=== PATIENT | female | born 1980 | race Caucasian/White ===

== ENCOUNTER 2020-04-14 14:14 | Outpatient (REF) | payer OTHER, SELFPAY ==
[2020-04-18 20:12] LABS: HPV mRNA E6/E7 rflx Not Detected (Not Detected)
== END 2020-04-14 14:15 | disposition home or self-care (01) ==
LOC: HO.LAB 14:14
PROVIDERS: PCP Internal Medicine; Visit Provider Obstetrics & Gynecology
DX: Z01.419 Encounter for gynecological examination (general) (routine) without abnormal findings (principal); D06.9 Carcinoma in situ of cervix, unspecified; N90.89 Other specified noninflammatory disorders of vulva and perineum; Z79.899 Other long term (current) drug therapy
CPT/HCPCS: 87624; 87625; 88142

== ENCOUNTER 2020-05-02 09:32 | Outpatient (REF) | payer OTHER, SELFPAY ==
[2020-05-02 10:08] LABS: MANUAL DIFF FLAG NO
[2020-05-02 10:10] LABS: Basophils Percent Auto 0.3 % (0-2); Eosinophils Absolute Auto 0.1 X10*3/uL (0.0-0.4); Eosinophils Percent Auto 1.5 % (0-4); Hematocrit 36.2 % (37-47); Hemoglobin 12.1 g/dl (12.0-16.0); Imm Gran Abs Auto 0.01 X10*3/uL (0.00-0.03); Imm Gran Pct Auto 0.3 % (0.0-0.4); Lymphocytes Absolute Auto 1.7 X10*3/uL (1.2-4.9); Lymphocytes Percent Auto 43.8 % (20-40); Mean Corpuscular HGB Conc 33.4 g/dl (31.0-35.0); Mean Corpuscular Hemoglobin 31.4 pg (27.0-33.0); Mean Platelet Volume 9.1 fL (9.4-12.3); Monocytes Absolute Auto 0.3 X10*3/uL (0.1-1.2); Monocytes Percent Auto 7.7 % (2-11); Neutrophils Absolute Auto 1.8 X10*3/uL (2.0-8.3); Neutrophils Percent Auto 46.4 % (45-73); Platelet Count 234 X10*3/uL (160-400); Red Blood Count 3.85 X10*6/uL (4.20-5.50); Red Cell Distribution Width 11.4 % (11.0-16.0); White Blood Count 3.9 X10*3/uL (4.8-10.8)
[2020-05-02 10:56] LABS: Alanine Aminotransferase 12 U/L (0-31); Albumin Level 4.3 g/dL (3.5-5.0); Alkaline Phosphatase 46 U/L (39-117); Anion Gap 11 (12-20); Aspartate Amino Transferase 19 U/L (5-31); Bilirubin Total 0.6 mg/dL (0.0-1.0); Blood Urea Nitrogen 8 mg/dL (9-16); Calcium 8.7 mg/dL (8.4-10.2); Carbon Dioxide 28 mmol/L (22-29); Chloride 106 mmol/L (96-108); Cholesterol 185 mg/dL; Estimated Glomerular Filt Rate > 60; Glucose Fasting 88 mg/dL (60-99); HDL Cholesterol 62 mg/dL; LDL Cholesterol Calculated 112 mg/dl; Potassium 4.5 mmol/l (3.3-5.1); Sodium 140 mmol/L (135-145); Total Protein 6.7 g/dL (6.5-8.0); Triglycerides 55 mg/dL
== END 2020-05-02 09:33 | disposition home or self-care (01) ==
LOC: HO.LAB 09:32
PROVIDERS: PCP Internal Medicine; Visit Provider Internal Medicine
DX: Z00.00 Encounter for general adult medical examination without abnormal findings (principal); E11.9 Type 2 diabetes mellitus without complications
CPT/HCPCS: 36415; 80053; 80061; 85025

== ENCOUNTER 2020-06-09 08:32 | Outpatient (REF) | payer OTHER, SELFPAY | END 2020-06-09 08:33 | disposition home or self-care (01) | LOC: HO.LAB 08:32 | PROVIDERS: Visit Provider Obstetrics & Gynecology | DX: N90.89 Other specified noninflammatory disorders of vulva and perineum (principal) | CPT/HCPCS: 56605; 88305 ==

== ENCOUNTER → 2020-06-23 12:06 | Outpatient (BNVA) | payer OTHER, SELFPAY | PROVIDERS: Visit Provider Obstetrics & Gynecology ==

== ENCOUNTER 2020-07-04 11:47 | Outpatient (REF) | payer OTHER, SELFPAY ==
--- NOTE | ~2020-07-04 | MM_ITS ---
EXAMINATION: MM SCREENING DIGITAL BREAST TOMOSYNTHESIS, BILATERAL CLINICAL INFORMATION: Screening. Asymptomatic. Prior outside mammography currently unavailable. Family history breast cancer aunt. The lifetime risk of breast cancer based on the Tyrer-Cuzick Model is 16%. COMPARISON: None. TECHNIQUE: Digital breast tomosynthesis is performed in both the craniocaudal and mediolateral oblique views along with computer-aided detection (CAD). Synthesized 2D images are generated from the tomosynthesis. FINDINGS: There are scattered areas of fibroglandular density (ACR BI-RADS breast composition Category b). There are no significant masses, abnormal calcifications, or other abnormalities. There are some dermal calcifications posterior inferior medial left breast. The axilla and skin contours are unremarkable. MM/MM tomosynthesis screening BI IMPRESSION: No mammographic evidence of malignancy. ASSESSMENT: BI-RADS 2: Benign RECOMMENDATION: 1. Routine annual mammography screening. 2. Radiology department staff will attempt to retrieve prior outside mammography to allow for comparison in an addendum report. This patient's information was entered into a reminder system with a target due date for their next mammogram.
== END 2020-07-04 11:48 | disposition home or self-care (01) ==
LOC: HO.MAMMO 11:47
PROVIDERS: PCP Internal Medicine; Visit Provider Obstetrics & Gynecology
DX: Z12.31 Encounter for screening mammogram for malignant neoplasm of breast (principal)
CPT/HCPCS: 77063; 77067

== ENCOUNTER 2021-06-12 09:52 | Outpatient (REF) | payer OTHER, SELFPAY ==
[2021-06-12 10:59] LABS: MANUAL DIFF FLAG NO
[2021-06-12 11:01] LABS: Basophils Percent Auto 0.2 % (0-2); Eosinophils Percent Auto 0.4 % (0-4); Hematocrit 36.4 % (37.0-47.0); Hemoglobin 11.8 g/dl (12.0-16.0); Imm Gran Abs Auto 0.01 X10*3/uL (0.00-0.03); Imm Gran Pct Auto 0.2 % (0.0-0.4); Lymphocytes Absolute Auto 1.7 X10*3/uL (1.2-4.9); Lymphocytes Percent Auto 30.8 % (20-40); Mean Corpuscular HGB Conc 32.4 g/dl (31.0-35.0); Mean Corpuscular Hemoglobin 28.8 pg (27.0-33.0); Mean Corpuscular Volume 88.8 fL (80.0-98.0); Mean Platelet Volume 8.8 fL (9.4-12.3); Monocytes Absolute Auto 0.4 X10*3/uL (0.1-1.2); Neutrophils Absolute Auto 3.2 x10*3/uL (2.0-8.3); Neutrophils Percent Auto 60.4 % (45-73); Platelet Count 248 X10*3/uL (160-400); White Blood Count 5.4 X10*3/uL (4.8-10.8)
[2021-06-12 11:39] LABS: Alanine Aminotransferase 10 U/L (0-31); Albumin Level 4.4 g/dL (3.5-5.0); Alkaline Phosphatase 49 U/L (39-117); Anion Gap 13 (12-20); Aspartate Amino Transferase 17 U/L (5-31); Bilirubin Total 0.7 mg/dL (0.0-1.0); Blood Urea Nitrogen 6 mg/dL (9-16); Calcium 9.7 mg/dL (8.4-10.2); Carbon Dioxide 28 mmol/L (22-29); Chloride 105 mmol/L (96-108); Cholesterol 216 mg/dL; Estimated Glomerular Filt Rate > 60; Glucose Fasting 92 mg/dL (60-99); HDL Cholesterol 60 mg/dL; LDL Cholesterol Calculated 142 mg/dl; Potassium 4.8 mmol/L (3.3-5.1); Sodium 141 mmol/L (135-145); Total Protein 7.2 g/dL (6.5-8.0); Triglycerides 73 mg/dL
[2021-06-12 12:00] LABS: Thyroid Stimulating Hormone 1.68 uIU/mL (0.32-4.0)
[2021-06-14 05:11] LABS: HPV mRNA E6/E7 rflx Not Detected (Not Detected)
== END 2021-06-12 09:53 | disposition home or self-care (01) ==
LOC: HO.LAB 09:52
PROVIDERS: Absent Provider Internal Medicine; PCP Internal Medicine; Visit Provider Obstetrics & Gynecology
DX: Z00.00 Encounter for general adult medical examination without abnormal findings (principal); Z12.4 Encounter for screening for malignant neoplasm of cervix; Z11.51 Encounter for screening for human papillomavirus (HPV); Z13.0 Encounter for screening for diseases of the blood and blood-forming organs and certain disorders involving the immune mechanism
CPT/HCPCS: 36415; 80053; 80061; 84443; 85025; 87624; 88142

== ENCOUNTER 2021-07-07 07:45 | Outpatient (REF) | payer OTHER, SELFPAY ==
--- NOTE | ~2021-07-07 | MM_ITS ---
EXAMINATION: MM SCREENING DIGITAL BREAST TOMOSYNTHESIS, BILATERAL CLINICAL INFORMATION: Screening. Asymptomatic. The lifetime risk of breast cancer based on the Tyrer-Cuzick Model is 15%. COMPARISON: Mammography: 07/04/2020, outside exam 12/20/2014 ([facility]). TECHNIQUE: Digital breast tomosynthesis is performed in both the craniocaudal and mediolateral oblique views along with computer-aided detection (CAD). Synthesized 2D images are generated from the tomosynthesis. FINDINGS: There are scattered areas of fibroglandular density (ACR BI-RADS breast composition Category b). There are no significant masses, abnormal calcifications, or other abnormalities. Parenchymal pattern is similar to prior studies. No developing density or significant changes. MM/MM tomosynthesis screening BI IMPRESSION: No mammographic evidence of malignancy. ASSESSMENT: BI-RADS 1: Negative RECOMMENDATION: Routine annual mammography screening. This patient's information was entered into a reminder system with a target due date for their next mammogram.
== END 2021-07-07 07:46 | disposition home or self-care (01) ==
LOC: HO.MAMMO 07:45
PROVIDERS: Absent Provider Obstetrics & Gynecology; PCP Internal Medicine; Visit Provider Internal Medicine
DX: Z12.31 Encounter for screening mammogram for malignant neoplasm of breast (principal)
CPT/HCPCS: 77063; 77067

== ENCOUNTER 2022-05-30 10:20 | Outpatient (REF) | payer OTHER, SELFPAY ==
--- NOTE | ~2022-05-30 | US_ITS ---
EXAMINATION: US PELVIS CLINICAL INFORMATION: Check IUD placement. COMPARISON: None TECHNIQUE: Ultrasound of the pelvis is performed using both transabdominal and transvaginal transducers along with Doppler. Transvaginal imaging is performed due to inadequate visualization transabdominally. FINDINGS: Uterus: The uterus is anteverted and measures 8.5 x 4.5 x 6.2 cm. The double wall endometrial thickness could not be measured secondary to the IUD which is in good position. The uterus is smooth in contour and has normal myometrial echogenicity. No visible fibroid. Adnexa: Both ovaries are visualized. There is normal color flow to the adnexa. There is no ovarian torsion. There is no pelvic ascites or fluid collection. Right ovary measures 1.7 x 2.0 x 2.1 cm for a volume of 3.7 mL which includes a benign 1.4 x 0.8 x 1.1 cm cyst. Left ovary measures 2.9 x 1.9 x 1.8 cm for volume of 5.2 mL includes a 1.7 x 1.4 x 1.3 cm cyst. US/US pelvic complete IMPRESSION: 1. IUD is in good position. 2. Bilateral ovarian cysts. No follow-up is needed.
[2022-05-30 15:10] LABS: CT PCR NOT DETECTED (Not Detect.); NG PCR NOT DETECTED (Not Detect.)
== END 2022-05-30 10:21 | disposition home or self-care (01) ==
LOC: HO.LAB 10:20
PROVIDERS: PCP Internal Medicine; Visit Provider Obstetrics & Gynecology
DX: Z30.430 Encounter for insertion of intrauterine contraceptive device (principal)
CPT/HCPCS: 0353U; 58300; 76856; 81025; J7300

== ENCOUNTER 2022-05-30 11:10 | Outpatient (REF) | payer OTHER, SELFPAY | END 2022-05-30 11:11 | disposition home or self-care (01) | LOC: HO.US 11:10 | PROVIDERS: PCP Internal Medicine; Visit Provider Obstetrics & Gynecology | DX: Z13.89 Encounter for screening for other disorder (principal) ==

== ENCOUNTER 2022-06-14 09:08 | Outpatient (REF) | payer OTHER, SELFPAY ==
[2022-06-14 09:21] LABS: MANUAL DIFF FLAG NO
[2022-06-14 09:41] LABS: Basophils Percent Auto 0.3 % (0-2); Eosinophils Percent Auto 0.5 % (0-4); Hematocrit 33.7 % (37.0-47.0); Hemoglobin 10.5 g/dl (12.0-16.0); Imm Gran Abs Auto 0.01 X10*3/uL (0.00-0.03); Imm Gran Pct Auto 0.3 % (0.0-0.4); Lymphocytes Absolute Auto 1.5 X10*3/uL (1.2-4.9); Lymphocytes Percent Auto 38.7 % (20-40); Mean Corpuscular HGB Conc 31.2 g/dl (31.0-35.0); Mean Corpuscular Hemoglobin 25.7 pg (27.0-33.0); Mean Corpuscular Volume 82.4 fL (80.0-98.0); Mean Platelet Volume 9.1 fL (9.4-12.3); Monocytes Absolute Auto 0.4 X10*3/uL (0.1-1.2); Monocytes Percent Auto 10.9 % (2-11); Neutrophils Absolute Auto 1.9 x10*3/uL (2.0-8.3); Neutrophils Percent Auto 49.3 % (45-73); Platelet Count 238 X10*3/uL (160-400); Red Blood Count 4.09 X10*6/uL (4.20-5.50); Red Cell Distribution Width 13.4 % (11.0-16.0); White Blood Count 3.9 X10*3/uL (4.8-10.8)
[2022-06-14 10:17] LABS: Alanine Aminotransferase 11 U/L (0-31); Albumin Level 4.2 g/dL (3.5-5.0); Alkaline Phosphatase 50 U/L (39-117); Anion Gap 12 (12-20); Aspartate Amino Transferase 20 U/L (5-31); Bilirubin Total 0.6 mg/dL (0.0-1.0); Blood Urea Nitrogen 7 mg/dL (9-16); Carbon Dioxide 26 mmol/L (22-29); Chloride 103 mmol/L (96-108); Cholesterol 228 mg/dL; Estimated Glomerular Filt Rate > 60; Glucose Fasting 85 mg/dL (60-99); HDL Cholesterol 72 mg/dL; LDL Cholesterol Calculated 140 mg/dl; Sodium 136 mmol/L (135-145); Total Protein 6.9 g/dL (6.5-8.0); Triglycerides 80 mg/dL
[2022-06-14 10:34] LABS: Thyroid Stimulating Hormone 2.14 uIU/mL (0.32-4.0)
== END 2022-06-14 09:09 | disposition home or self-care (01) ==
LOC: HO.LAB 09:08
PROVIDERS: PCP Internal Medicine; Visit Provider Internal Medicine
DX: E78.5 Hyperlipidemia, unspecified (principal); D64.9 Anemia, unspecified; N28.9 Disorder of kidney and ureter, unspecified; E03.9 Hypothyroidism, unspecified
CPT/HCPCS: 36415; 80053; 80061; 84443; 85025

== ENCOUNTER 2022-06-14 09:53 | Outpatient (REF) | payer OTHER, SELFPAY ==
[2022-06-16 03:18] LABS: HPV mRNA E6/E7 rflx Not Detected (Not Detected)
== END 2022-06-14 09:54 | disposition home or self-care (01) ==
LOC: HO.LNP 09:53
PROVIDERS: Visit Provider Obstetrics & Gynecology
DX: Z01.419 Encounter for gynecological examination (general) (routine) without abnormal findings (principal); Z11.51 Encounter for screening for human papillomavirus (HPV)
CPT/HCPCS: 87624; 88142

== ENCOUNTER 2022-07-13 07:59 | Outpatient (REF) | payer OTHER, SELFPAY ==
--- NOTE | ~2022-07-13 | MM_ITS ---
EXAMINATION: MM SCREENING DIGITAL BREAST TOMOSYNTHESIS, BILATERAL CLINICAL INFORMATION: Screening. Asymptomatic. The lifetime risk of breast cancer based on the Tyrer-Cuzick Model is 15%. COMPARISON: Mammography: 07/07/2021, 07/04/2020, outside mammography 12/13/1714 ([place]). TECHNIQUE: Digital breast tomosynthesis is performed in both the craniocaudal and mediolateral oblique views along with computer-aided detection (CAD). Synthesized 2D images are generated from the tomosynthesis. FINDINGS: There are scattered areas of fibroglandular density (ACR BI-RADS breast composition Category b). There are no significant masses, abnormal calcifications, or other abnormalities. No architectural abnormality or developing density or significant change from prior studies. The axilla and skin contours are unremarkable. MM/MM tomosynthesis screening BI IMPRESSION: No mammographic evidence of malignancy. ASSESSMENT: BI-RADS 1: Negative RECOMMENDATION: Routine annual mammography screening. This patient's information was entered into a reminder system with a target due date for their next mammogram.
== END 2022-07-13 08:00 | disposition home or self-care (01) ==
LOC: HO.MAMMO 07:59
PROVIDERS: Absent Provider Obstetrics & Gynecology; PCP Internal Medicine; Visit Provider Internal Medicine
DX: Z12.31 Encounter for screening mammogram for malignant neoplasm of breast (principal)
CPT/HCPCS: 77063; 77067

== ENCOUNTER 2022-08-17 14:08 | Outpatient (REF) | payer OTHER, SELFPAY ==
[2022-08-17 18:29] LABS: Erythrocyte Sedimentation Rate 7 MM/HR (0-20)
[2022-08-17 18:34] LABS: Rheumatoid Factor < 13.0 IU/mL (<15.0)
[2022-08-21 07:43] LABS: Anti Nuclear Antibody Screen NEGATIVE (NEGATIVE)
== END 2022-08-17 14:09 | disposition home or self-care (01) ==
LOC: HO.LAB 14:08
PROVIDERS: PCP Internal Medicine; Visit Provider Internal Medicine
DX: I73.00 Raynaud's syndrome without gangrene (principal)
CPT/HCPCS: 36415; 85652; 86038; 86039; 86431

== ENCOUNTER 2023-03-12 12:26 | Outpatient (AMB) | payer OTHER, SELFPAY ==
--- NOTE | 2023-03-12 13:24 | MHC.OFFWIV ---
Intake Vital Signs 03/12/23 13:25 Height 5 ft 3 in Weight 161 lb 4 oz BMI 28.6 BP 120/80 Blood Pressure Location Lt brachial Position Sitting Pulse 83 Pulse Source Pulse Oximeter Temp 98.2 F Temp Source Temporal Artery Scan Pulse Oximetry (%) 98 Oxygen Delivery Method Room Air Intake Visit Reasons: EP, cough, congestion [phone] Intake Note: pt is here for c/o cough and congestion Patient Tobacco Use Status: Never used Tobacco Allergies No Known Allergies Allergy (Verified 03/12/23 13:25) Do you need a note to return to daycare/school/sports/work: Yes HPI HPI Comments History of Present Illness Details 42-year-old female that presents for URI symptoms. Patient started developing cough and upper respiratory symptoms around January. Since then cough is progress course the last month. She endorses some productivity to the cough denies fevers chills chest pain shortness of breath nausea vomiting. 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 Mother Hypothyroidism Maternal Grandmother No problems noted. Maternal Grandfather Prostate cancer Diabetes Paternal Grandmother Colon cancer CHF (congestive heart failure) CVD (cardiovascular disease) Paternal Grandfather Parkinsons disease Mental health disorder Paternal Aunt Breast cancer Social History Housing: House Alcohol intake: never Patient Tobacco Use Status: Never used Tobacco Tobacco use type: Cigarette e-Cigarette/Vaping Use: Never Used Second Hand Smoke Exposure: No service: No Current occupational status: employed Sexual orientation: Straight/Heterosexual Gender identity: Female Cognitive needs: No Hearing needs: No Vision needs: No Female Reproductive History Menstrual Age of Menarche: 10 Review of Systems Resp Reports chest congestion and Reports cough Physical Exam Vital Signs: Last Vital Signs Temp 98.2 F 03/12/23 13:25 Pulse 83 03/12/23 13:25 BP 120/80 03/12/23 13:25 Pulse Ox 98 03/12/23 13:25 Oxygen Delivery Method Room Air 03/12/23 13:25 BMI result Body Mass Index 28.6 Const General: healthy appearing, comfortable, no acute distress and alert Orientation/consciousness: patient oriented x3 Limitations: no limitations HEENT Head: Yes normal to inspection Ears: hearing grossly normal bilaterally Resp Other: ? Rhonchi left lower Effort & Inspection: normal respiratory effort and able to speak in complete sentences Cardio Rate: regular rate Skin General skin exam: no rashes or lesions noted Neuro General: patient oriented x3 Extrem General: Yes normal to inspection Assessment & Plan Assessment & Plan (1) Bronchitis: Code(s): J40 - Bronchitis, not specified as acute or chronic Plan Suspect bronchitis will order chest x-ray to rule out pneumonia. XR negative for pna, some peribronchial cuffing suggestive of bronchitis. symptomatic treatment Discharge instructions, follow up and treatment are discussed with patient in my usual fashion. Alternatives in treatment are also discussed. The patient will return for worsening symptoms or as needed. Advised that any labs/imaging ordered will be followed up on and contact made if further treatment needed. Counseled that patient's condition may require further evaluation and/or treatment. Symptoms of concern for worsening disorder discussed in detail in my customary manner. Patient does verbalize understanding of the plan, there are no apparent barriers to communication. The patient is given the opportunity to ask questions and have them answered to his/her satisfaction Orders: Orders XR chest 2V Today R05.9 - Cough, unspecified Medications: New prednisone 40 mg (2 x 20 mg) PO DAILY 5 days 10 tabs 0RF albuterol sulfate 90 mcg/actuation 2 puffs inhalation Q6H PRN 6.7 grams 0RF shortness of breath or wheezing benzonatate 100 mg PO BID PRN 10 caps 0RF cough Coding Level of Care Code Est Pt Level 4 (19437) Diagnoses Bronchitis J40
[2023-03-12 13:25] VITALS: BP 120/80; PULSE 83; TEMP 36.8; O2SAT 98; BMI 28.6
== END 2023-03-12 14:07 | disposition home or self-care (01) ==
PROVIDERS: PCP Internal Medicine; Visit Provider Physician Assistant
DX: J40 Bronchitis, not specified as acute or chronic (principal)
CPT/HCPCS: 99214

== ENCOUNTER 2023-03-12 13:51 | Outpatient (REF) | payer OTHER, SELFPAY ==
--- NOTE | ~2023-03-12 | XR_ITS ---
EXAMINATION: XR CHEST CLINICAL INFORMATION: Cough. COMPARISON: None available. TECHNIQUE: 2 views of the chest were obtained. FINDINGS: The cardiomediastinal silhouette is normal. There is no focal lung consolidation or pleural effusion. The bony structures and soft tissues are unremarkable. XR/XR chest 2V IMPRESSION: No active cardiopulmonary disease.
== END 2023-03-12 13:52 | disposition home or self-care (01) ==
LOC: HO.HMGCX 13:51
PROVIDERS: PCP Internal Medicine; Visit Provider Physician Assistant
DX: R05.9 Cough, unspecified (principal)
CPT/HCPCS: 71046

== ENCOUNTER 2023-05-10 14:51 | Outpatient (AMB) | payer OTHER, SELFPAY ==
--- NOTE | 2023-05-10 15:00 | A.OFFVIS_ITS ---
Intake Vital Signs 05/10/23 15:01 Height 5 ft 3 in Weight 165 lb BMI 29.2 Intake Visit Reasons: ? yeast infection 2x weeks Intake Note: possible yeast infection, has been dealing with Sx since April 22. Burning, itching, discharge more mucossy Professor Of Literacy Required: No Information Interpreted: non-clinical & clinical Awning Frame Maker: Awning Frame Maker Present (Kiki) Allergies No Known Allergies Allergy (Verified 05/10/23 15:04) Medication List - Last Reconciled 05/10/23 by Hailee Nolasco CNM cephalexin 250 mg PO Q6H copper (ParaGard T 380A) intrauterine fluticasone propionate 50 mcg/actuation 1 spray intranasal DAILY loratadine 10 mg PO DAILY lorazepam 1 mg PO Q6H PRN omeprazole 40 mg PO DAILY sertraline 50 mg PO DAILY Is last menstrual period known: Yes Last menstrual period: 04/15/23 Post menopausal: No HPI ? yeast infection 2x weeks HPI Details Patient is here because she had a really severe yeast infection that she thinks started initially may be because of some soap and then she had to be on antibiotics for strep infection as did many family members and it got really angry and inflamed and bad she treated herself also with honey and yogurt and thinks that made it worse and then she got Monistat 1. She still has a little bit of itching but it is much improved. She has been beginning to look at what she does to help it as well she is trying to not wear underwear at night. She is starting to look at yoga tights and leggings. She wears a combination of pads and tampons for her menses. She is on her 3rd ParaGard which she loves. She has also wondered if she is beginning to get some jose menopausal symptoms because of vaginal dryness overall . She has a 19-year-old and she had a h ome with her 5-year-old which went very well even though it was is surprise breech. 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 Mother Hypothyroidism Maternal Grandmother No problems noted. Maternal Grandfather Prostate cancer Diabetes Paternal Grandmother Colon cancer CHF (congestive heart failure) CVD (cardiovascular disease) Paternal Grandfather Parkinsons disease Mental health disorder Paternal Aunt Breast cancer Social History Housing: House Alcohol intake: never Patient Tobacco Use Status: Never used Tobacco Tobacco use type: Cigarette e-Cigarette/Vaping Use: Never Used Second Hand Smoke Exposure: No service: No Current occupational status: employed Sexual orientation: Straight/Heterosexual Gender identity: Female Cognitive needs: No Hearing needs: No Vision needs: No Female Reproductive History Menstrual Age of Menarche: 10 Duration of menses: 3-5 days Date of last menstrual period: 04/15/23 control method: copper IUCD Total pregnancies: 2 Full term: 2 Number of Living Children: 2 Date of last pap smear: 06/14/22 (negative) History of abnormal pap smear: Yes Physical Exam Vital Signs: BMI result Body Mass Index 29.2 Other: Vulva is not inflamed today neither is vagina scant white discharge is within normal limits cervix multiparous consistent with status post LEEP with ParaGard IUD string clearly visible in os. There are 2 red spots on her cervix that appeared to be consistent with blood vessels but they are not bleeding. 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 Code(s): B37.31 - Acute candidiasis of vulva and vagina Plan ----I reviewed available options for Control Methods and their associated side effect profiles. In particular, we discussed the method most of interest to her. Reviewed follow-up plan for her Pap smears and follow-up LEEP evaluations -----I reviewed her symptoms we reviewed what she may have done alleviate symptoms. I reviewed contributing factors to yeast infection including clothing that may be a little tight or does not permit air to pass to the vulva well, including non cotton underwear, nylon and polyester type workout clothes and yoga pants, use of panty liners pads for periods etc. My recommendations include use of the medication that we decided upon, allowing air to her vulva as much as possible including wearing cotton underwear and possibly no underwear at night when possible. Any other contributing factors were explored. I encouraged her not to scratch. I reviewed what to do when she feels symptoms first starting, (re-double her efforts at allowing air to the area.) She has been doing all of the above and is already feeling better and will continue the above efforts she does have some Monistat cream left over which she may apply p.r.n. if she needs to also recommend Monistat 7 for p.r.n. use I did offer prescription but she does not think it would be useful with her health insurance co-pay situation and she would get it [id number]. Also discussed possible Diflucan if she ever needed to be on antibiotics for any other reason but she has no reason to suspect she would.. Discussed skin care in general and also dryness approaching menopause. 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
[2023-05-10 15:01] VITALS: BMI 29.2
== END 2023-05-10 15:40 | disposition home or self-care (01) ==
PROVIDERS: PCP Internal Medicine; Visit Provider Advanced Practice Midwife
DX: Z30.431 Encounter for routine checking of intrauterine contraceptive device (principal); D06.9 Carcinoma in situ of cervix, unspecified; B37.31 Acute candidiasis of vulva and vagina
CPT/HCPCS: 99213

== ENCOUNTER 2023-05-10 14:51 | Outpatient (REF) | payer OTHER, SELFPAY ==
[2023-05-12 11:46] LABS: BV Int Neg Control Negative (Negative); BV Int Pos Control Positive (Positive)
== END 2023-05-10 14:52 | disposition home or self-care (01) ==
LOC: HO.LNP 14:51
PROVIDERS: PCP Internal Medicine; Visit Provider Advanced Practice Midwife
DX: Z30.431 Encounter for routine checking of intrauterine contraceptive device (principal); N93.9 Abnormal uterine and vaginal bleeding, unspecified; B37.31 Acute candidiasis of vulva and vagina
CPT/HCPCS: 87480; 87510; 87660

== ENCOUNTER 2023-06-14 09:51 | Outpatient (AMB) | payer OTHER, SELFPAY ==
[2023-06-14 09:55] VITALS: BP 102/60; PULSE 79; O2SAT 99; BMI 28.9
--- NOTE | 2023-06-14 09:55 | MHC.PC.OV ---
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 Management Specialist: Not Required per policy Accompanied by: Self / Same As Patient Allergies No Known Allergies Allergy (Verified 06/14/23 09:56) Medication List - Last Reconciled 06/14/23 by Jeff Abebe MD azithromycin take 500 mg today (day 1), then 250 mg for 4 days (days 2-5) PO copper (ParaGard T 380A) intrauterine loratadine 10 mg PO DAILY lorazepam 1 mg PO Q6H PRN omeprazole 40 mg PO DAILY sertraline 50 mg PO DAILY Tobacco use date assessed: 06/14/23 Dental Screening Dental Screen Date: 06/14/23 Did you have a dental visit in the last 12 months?: Yes Did you have a dental problem in the last 6 months where you did not have access to dental care?: No Was dental information given to patient?: Patient has dentist HPI Annual Exam HPI Details depression on rx; doing well and compliant [facility] Medical History (Updated 06/14/23 @ 11:59 by Jeff Abebe MD) 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 Mother Hypothyroidism Maternal Grandmother No problems noted. Maternal Grandfather Prostate cancer Diabetes Paternal Grandmother Colon cancer CHF (congestive heart failure) CVD (cardiovascular disease) Paternal Grandfather Parkinsons disease Mental health disorder Paternal Aunt Breast cancer Social History Housing: House Alcohol intake: never Patient Tobacco Use Status: Never used Tobacco Tobacco use type: Cigarette e-Cigarette/Vaping Use: Never Used Second Hand Smoke Exposure: No service: No Current occupational status: employed Sexual orientation: Straight/Heterosexual Gender identity: Female Cognitive needs: No Hearing needs: No Vision needs: Yes Female Reproductive History Menstrual Age of Menarche: 10 Questionnaire PHQ-9 Over the last 2 weeks, how often have you been bothered by any of the following problems? 1. Little interest or pleasure in doing things: not at all 2. Feeling down, depressed, or hopeless: not at all 3. Trouble falling or staying asleep, or sleeping too much: not at all 4. Feeling tired or having little energy: not at all 5. Poor appetite or overeating: not at all 6. Feeling bad about yourself - or that you are a failure or have let yourself or your family down: not at all 7. Trouble concentrating on things, such as reading the newspaper or watching television: not at all 8. Moving or speaking so slowly that other people could have noticed. Or the opposite - being so fidgety or restless that you have been moving around a lot more than usual: not at all 9. Thoughts that you would be better off or of hurting yourself in some way: not at all Total score: 0 Depression Screening Interpretation: Negative Depression Screening Done: Yes 89943 - PHQ-9 Billing: Yes Source: Developed by Drs. Toy Nance, Christy Wiley, Fabrice Roberson and colleagues, with an educational swati from [email or web address]. Thrive Questionnaire Date Thrive assessed: 06/14/23 I am a: Patient What is your living situation today?: I have a steady place to live Within the past 12 months, did the food you bought not last and you didn't have the money to get more?: Never true Within the past 12 months, did you worry whether your food would run out before you got money to buy more?: Never true Do you have trouble paying for medicines?: No Do you have trouble getting transportation to medical appointments?: No Do you have trouble paying your heating and electricity bill?: No Do you have trouble taking care of your child, family member or friend?: No Do you have trouble with day-to-day activities such as bathing, preparing meals, shopping, managing finances, etc.?: No Are you currently unemployed and looking for a job?: No Are you interested in more education?: No Please select the resources that you would like help with: None THRIVE Score: 0 AUDIT C Alcohol Use Questionnaire (AUDIT-C) 1. How often do you have a drink containing alcohol?: Monthly or less 2. How many drinks containing alcohol do you have on a typical day when you are drinking?: 1 or 2 3. How often do you have six or more drinks on one occasion?: Never Total Score: 1 Score Reviewed/Action Taken: No AGATHA-7 AMB Questionnaire AGATHA-7 Date AGATHA - 7 assessed: 06/14/23 Feeling nervous, anxious, or on edge: 0 = Not at all Not being able to stop or control worryin = Not at all Worrying too much about different things: 0 = Not at all Trouble relaxin = Not at all Being so restless that it is hard to sit still: 0 = Not at all Becoming easily annoyed or irritable: 0 = Not at all Feeling afraid as if something awful might happen: 0 = Not at all Total AGATHA-7 score (0-4 normal; 5-9 mild; 10-14 moderate; 15-21 severe): 0 Source: Developed by Drs. Toy Nance, Christy Wiley, Fabrice Roberson and colleagues, with an educational swati from [email or web address]. AGATHA-7 Assessment Billing AGATHA-7 Assessment Tool: AGATHA-7 Assessment 49065 Review of Systems Const Denies chills, Denies fatigue, Denies headache(s) and Denies weight loss Eyes Denies change in vision, Denies diplopia and Denies eye pain ENT Denies vertigo, Denies dizziness, Denies headache(s) and Denies nasal discharge Card Denies chest pain, Denies rapid heart rate and Denies dyspnea on exertion Resp Denies chest congestion, Denies cough, Denies pain with cough and Denies dyspnea on exertion GI Denies abdominal pain, Denies hematochezia and Denies change in bowel habits Musc Denies myalgias, Denies arthralgias and Denies joint swelling Skin/Breast Denies lesions and Denies unusual bruising Neuro Denies vertigo, Denies dizziness, Denies headache(s) and Denies focal weakness Endo Denies fatigue Physical exam (Primary Care) Vital Signs: Last Vital Signs Pulse 79 06/14/23 09:55 BP 102/60 06/14/23 09:55 Pulse Ox 99 06/14/23 09:55 Oxygen Delivery Method Room Air 06/14/23 09:55 BMI result Body Mass Index 28.9 Tobacco/Smoking Status: Tobacco use Status Tobacco use date assessed 06/14/23 06/14/23 10:02 Patient Tobacco Use Status Never used Tobacco 06/14/23 10:02 Tobacco use type Cigarette 06/14/23 10:02 e-Cigarette/Vaping Use Never Used 06/14/23 10:02 PHQ-9: PHQ-9 Score PHQ-9: Total score 0 06/14/23 10:02 Depression Screening Interpretation: Negative Thrive Assessment: Date of Thrive Assessment Date Thrive assessed 06/14/23 06/14/23 10:02 Const General: cooperative, healthy appearing and no acute distress Orientation/consciousness: oriented to person, oriented to place and oriented to time HENMT Head: Yes normal to inspection, Yes normocephalic and Yes atraumatic Mouth: Normal oral and palatal mucosa present and tongue normal Throat: Yes posterior oropharynx normal and Yes uvula midline Eyes General: appearance normal, both eyes and all related structures Neck Neck: Yes normal visual inspection, Yes full ROM and Yes no lymphadenopathy Thyroid: Thyroid normal Carotids: normal carotid upstroke Chest Chest palpation & inspection: normal inspection of the chest Resp Effort & Inspection: normal respiratory effort and able to speak in complete sentences Auscultation: clear to auscultation bilaterally Cardio Jugular venous distension: no JVD Palpation: normal PMI Rate: regular rate Rhythm: regular rhythm Heart sounds: S1 normal heart sound present and S2 normal heart sound present GI Inspection: Yes normal to inspection Palpation (GI): Soft to palpation and No hepatosplenomegaly present Auscultation: normal bowel sounds General: Yes no CVA tenderness Back/Spine/Pelvis Back: no CVA tenderness Skin General skin exam: no rashes or lesions noted Neuro General: oriented to person, oriented to place and oriented to time Extrem General: Yes normal to inspection and Yes full ROM Assessment and Plan Assessment & Plan (1) Physical exam: Code(s): Z00.00 - Encounter for general adult medical examination without abnormal findings Plan: stable; do labs (2) Depression: Code(s): F32.A - Depression, unspecified Plan: stable; same rx Orders: Orders Comprehensive [place]. Panel Fast Today N28.9 - Disorder of kidney and ureter, unspecified, Z00.00 - Encounter for general adult medical examination without abnormal findings Lipid Panel Today E78.5 - Hyperlipidemia, unspecified, Z00.00 - Encounter for general adult medical examination without abnormal findings Thyroid Stimulating Hormone Today E03.9 - Hypothyroidism, unspecified, Z00.00 - Encounter for general adult medical examination without abnormal findings Complete Blood Count Auto Diff Today D64.9 - Anemia, unspecified, Z00.00 - Encounter for general adult medical examination without abnormal findings Medications: New azithromycin take 500 mg today (day 1), then 250 mg for 4 days (days 2-5) PO 6 tabs 0RF Z00.00 - Encounter for general adult medical examination without abnormal findings Coding Level of Care Code Est Pt Prev Care 40-64y(59433) Diagnoses Physical exam Z00.00 Depression F32.A Additional Codes AGATHA-7 Assessment Billing - AGATHA-7 Assessment Tool: AGATHA-7 Assessment 24262 ([id number])
== END 2023-06-14 10:15 | disposition home or self-care (01) ==
PROVIDERS: Visit Provider Internal Medicine
DX: Z00.00 Encounter for general adult medical examination without abnormal findings (principal); F32.A Depression, unspecified
CPT/HCPCS: 99396

== ENCOUNTER 2023-06-17 08:46 | Outpatient (AMB) | payer OTHER, SELFPAY ==
--- NOTE | 2023-06-17 08:48 | A.OFFVIS_ITS ---
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 No complaints. Last Pap/HPV was negative in 06/18 Last Mammogram was BI-RADS 1 in 07/19 [facility] Medical History 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 Mother Hypothyroidism Maternal Grandmother No problems noted. Maternal Grandfather Prostate cancer Diabetes Paternal Grandmother Colon cancer CHF (congestive heart failure) CVD (cardiovascular disease) Paternal Grandfather Parkinsons disease Mental health disorder Paternal Aunt Breast cancer Social History Housing: House Alcohol intake: never Patient Tobacco Use Status: Never used Tobacco Tobacco use type: Cigarette e-Cigarette/Vaping Use: Never Used Second Hand Smoke Exposure: No service: No Current occupational status: employed Sexual orientation: Straight/Heterosexual Gender identity: Female Cognitive needs: No Hearing needs: No Vision needs: Yes Female Reproductive History Menstrual Age of Menarche: 10 Duration of menses: 3-5 days Date of last menstrual period: 05/28/23 control method: copper IUCD (Paragard 05/2022) Total pregnancies: 2 Full term: 2 Number of Living Children: 2 Date of last pap smear: 06/14/22 (neg pap and hpv) History of abnormal pap smear: Yes (06/13 +hpv 08/12 lgsil +hpb 02/12 colpo cin3 03/14 leep cin3) Date of Mammogram: 07/13/22 Review of Systems Const All systems reviewed & are unremarkable except as noted in HPI and below Card Reports as per HPI Resp Reports as per HPI GI Reports as per HPI and Reports no additional complaints Reports as per HPI Physical Exam Const General: cooperative, healthy appearing and comfortable Chest Chest palpation & inspection: normal inspection of the chest and normal palpation of entire chest wall Breast/axilla inspection: normal inspection of the breasts and normal inspection of the axillae Breast/axilla palpation: normal palpation of the breasts, normal palpation of the axillae and no axillary lymphadenopathy Resp Effort & Inspection: normal respiratory effort Auscultation: clear to auscultation bilaterally Percussion: percussion normal Cardio Palpation: normal PMI Rate: regular rate Rhythm: regular rhythm Heart sounds: no murmurs and no rubs Peripheral pulses: Peripheral pulses 2+ throughout GI Inspection: Yes normal to inspection Palpation (GI): Soft to palpation, nontender, no guarding, not rigid and No hepatosplenomegaly present Percussion: Yes normal to percussion Auscultation: normal bowel sounds Rectal Exam - Female: deferred General: Yes bladder normal to palpation External Female Exam: No lesion Speculum Exam - Vagina: normal appearance of the vagina, normal palpation, normal vaginal discharge and not erythematous Speculum Exam - Cervix: normal appearance of the cervix and normal palpation Bimanual exam- vagina & uterus: normal bimanual exam, normal palpation, uterine size normal, bladder normal to palpation, consistency normal and normal palpation Bimanual Exam- Adnexa, other: normal adnexae, no masses and no tenderness Assessment & Plan Assessment & Plan (1) Well woman exam: Comment: History of RINA 3 status post LEEP with negative margins 2019 followed by negative co testing in 03/2020, 06/17 and 06/18 Code(s): Z01.419 - Encounter for gynecological examination (general) (routine) without abnormal findings Plan: Cotesting not indicated this year. Mammogram ordered. Counseled the patient about the recommended dietary allowance of 1000 mg of Calcium & 600 IU of vitamin D. The patient was instructed to perform monthly self-breast exams and to schedule an annual exam in a year; All questions answered and the patient verbalized understanding. Instructed the patient to schedule annual exam in a year Orders: Referrals Gastroenterology Referral Z12.11 - Encounter for screening for malignant neoplasm of colon Coding Level of Care Code Est Pt Prev Care 40-64y(70155) Diagnoses Well woman exam Z01.419
[2023-06-17 08:50] VITALS: BP 106/64; BMI 29.0
== END 2023-06-17 09:13 | disposition home or self-care (01) ==
PROVIDERS: Visit Provider Obstetrics & Gynecology
DX: Z01.419 Encounter for gynecological examination (general) (routine) without abnormal findings (principal)
CPT/HCPCS: 99396

== ENCOUNTER → 2023-06-17 08:46 | Outpatient (BNVA) | payer OTHER, SELFPAY | PROVIDERS: Visit Provider Obstetrics & Gynecology ==

== ENCOUNTER 2023-07-19 08:12 | Outpatient (REF) | payer OTHER, SELFPAY ==
--- NOTE | ~2023-07-19 | MM_ITS ---
EXAMINATION: MM SCREENING DIGITAL BREAST TOMOSYNTHESIS, BILATERAL CLINICAL INFORMATION: Screening. Asymptomatic. COMPARISON: Mammography: This study is compared with prior exams dating back to 2015. TECHNIQUE: Digital breast tomosynthesis is performed in both the craniocaudal and mediolateral oblique views along with computer-aided detection (CAD). Synthesized 2D images are generated from the tomosynthesis. FINDINGS: The breasts are heterogeneously dense, which may obscure small masses (ACR BI-RADS breast composition Category c). There are no significant masses, abnormal calcifications, or other abnormalities. MM/MM tomosynthesis screening BI IMPRESSION: No mammographic evidence of malignancy. ASSESSMENT: BI-RADS BI-RADS 1 - Negative RECOMMENDATION: Routine annual mammography screening. 1 year F/U This examination should not preclude the clinical evaluation of a suspicious palpable abnormality. This patient's information was entered into a reminder system with a target due date for their next mammogram.
== END 2023-07-19 08:13 | disposition home or self-care (01) ==
LOC: HO.MAMMO 08:12
PROVIDERS: PCP Internal Medicine; Visit Provider Internal Medicine
DX: Z12.31 Encounter for screening mammogram for malignant neoplasm of breast (principal)
CPT/HCPCS: 77063; 77067

== ENCOUNTER → 2023-07-19 08:15 | Outpatient (BNV) | payer OTHER, SELFPAY | PROVIDERS: PCP Internal Medicine; Visit Provider Radiology Diagnostic Radiology | DX: Z12.31 Encounter for screening mammogram for malignant neoplasm of breast (principal) | CPT/HCPCS: 77063; 77067 ==

== ENCOUNTER 2023-08-09 13:05 | Outpatient (AMB) | payer OTHER, SELFPAY ==
--- NOTE | 2023-08-09 13:32 | AM.OFFWIN_ITS ---
Intake Vital Signs 08/09/23 13:33 Weight 167 lb BP 106/68 Blood Pressure Location Rt brachial Position Sitting Pulse 70 Pulse Source Pulse Oximeter Pulse Oximetry (%) 99 Oxygen Delivery Method Room Air Intake Visit Reasons: EP worsening cough wheezing Intake Note: Patient here for worsening cough,fatigued and wheezing which started yesterday. Pt states her son at home has pneumonia. Patient Tobacco Use Status: Never used Tobacco Allergies No Known Allergies Allergy (Verified 08/09/23 13:34) Do you need a note to return to daycare/school/sports/work: No HPI HPI Comments History of Present Illness Details 43 y/o female patient who presents to [facility] in clinic with c/o wheezing, cough and body aches for 2 days. Pt's daughter had pneumonia last week, and Pt worried she might also have it. Denies fevers, chills, nausea or vomiting. Reports good appetite. [facility] Medical History 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 Mother Hypothyroidism Maternal Grandmother No problems noted. Maternal Grandfather Prostate cancer Diabetes Paternal Grandmother Colon cancer CHF (congestive heart failure) CVD (cardiovascular disease) Paternal Grandfather Parkinsons disease Mental health disorder Paternal Aunt Breast cancer Social History Housing: House Alcohol intake: never Patient Tobacco Use Status: Never used Tobacco Tobacco use type: Cigarette e-Cigarette/Vaping Use: Never Used Second Hand Smoke Exposure: No service: No Current occupational status: employed Sexual orientation: Straight/Heterosexual Gender identity: Female Cognitive needs: No Hearing needs: No Vision needs: Yes Female Reproductive History Menstrual Age of Menarche: 10 Review of Systems Const All systems reviewed & are unremarkable except as noted in HPI and below Physical Exam Vital Signs: Last Vital Signs Pulse 70 08/09/23 13:33 BP 106/68 08/09/23 13:33 Pulse Ox 99 08/09/23 13:33 Oxygen Delivery Method Room Air 08/09/23 13:33 Const General: comfortable and no acute distress Orientation/consciousness: patient oriented x3 HEENT Head: Yes normocephalic Ears: external ears normal and TM's normal bilaterally General nose exam: Abnormal mucous membranes and turbinates present boggy and erythematous and Nasal discharge present Face and sinus: Yes sinuses nontender Mouth: moist mucous membranes Throat: Yes posterior oropharynx normal Resp Effort & Inspection: normal respiratory effort and able to speak in complete sentences Auscultation: clear to auscultation bilaterally, no crackles, no rales, no rhonchi and no wheezes Cardio Rate: regular rate Rhythm: regular rhythm Neuro General: patient oriented x3 Assessment & Plan Assessment & Plan (1) Upper respiratory infection: Code(s): J06.9 - Acute upper respiratory infection, unspecified Qualifiers: URI type: unspecified URI Qualified Code(s): J06.9 - Acute upper respiratory infection, unspecified Plan: - Rest and hydrate well with warm fluids. - OTC cold remedies - Acetaminophen for pain relief. Orders: Orders SARS-CoV2/FLU/RSV Today J06.9 - Acute upper respiratory infection, unspecified Coding Level of Care Code Est Pt Level 3 (94909) Diagnoses Upper respiratory tract infection, unspecified type J06.9 URI type: unspecified URI Time Spent (min) 15
[2023-08-09 13:33] VITALS: BP 106/68; PULSE 70; O2SAT 99
== END 2023-08-09 14:23 | disposition home or self-care (01) ==
PROVIDERS: PCP Internal Medicine; Visit Provider Nurse Practitioner Family
DX: J06.9 Acute upper respiratory infection, unspecified (principal)
CPT/HCPCS: 99213

== ENCOUNTER 2023-08-09 13:54 | Outpatient (REF) | payer OTHER, SELFPAY ==
[2023-08-09 17:48] LABS: Influenza A PCR NEGATIVE (Negative); Influenza B PCR NEGATIVE (Negative); Resp Syncy Virus RNA Qual PCR NEGATIVE (Negative); SARS COV2 PCR INHOUSE NEGATIVE (Negative)
== END 2023-08-09 13:55 | disposition home or self-care (01) ==
LOC: HO.LAB 13:54
PROVIDERS: Visit Provider Nurse Practitioner Family
DX: J06.9 Acute upper respiratory infection, unspecified (principal)
CPT/HCPCS: 0241U

== ENCOUNTER 2024-01-01 14:06 | Outpatient (AMB) | payer OTHER, SELFPAY ==
--- NOTE | 2024-01-01 14:29 | MHC.OFFWIV ---
Intake Vital Signs 01/01/24 14:32 Height 5 ft 3 in Weight 166 lb BMI 29.4 BP 124/72 Blood Pressure Location Rt brachial Position Sitting Pulse 84 Pulse Source Pulse Oximeter Temp 98.4 F Temp Source Oral Pulse Oximetry (%) 99 Oxygen Delivery Method Room Air Intake Visit Reasons: itching spot rt shoulder, elbows, arms Intake Note: PT C/O Itching RT shoulder, elbows and arms. Started 2 weeks ago Patient Tobacco Use Status: Never used Tobacco Allergies No Known Allergies Allergy (Verified 01/01/24 14:40) Do you need a note to return to daycare/school/sports/work: No HPI HPI Comments History of Present Illness Details Patient is a 43-year-old female complaining of an itchy rash that started on her left forearm and now has spread to the upper forearm as well as her right shoulder and her right forearm. She states the original area was definitely poison iesha but she is not sure if the other areas are because those areas did not come in contact with the poison iesha plant. She has been washing her sheets and clothes to avoid spreading the oils. She denies any fever PFSH Medical History 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 Mother Hypothyroidism Maternal Grandmother No problems noted. Maternal Grandfather Prostate cancer Diabetes Paternal Grandmother Colon cancer CHF (congestive heart failure) CVD (cardiovascular disease) Paternal Grandfather Parkinsons disease Mental health disorder Paternal Aunt Breast cancer Social History Housing: House Alcohol intake: never Patient Tobacco Use Status: Never used Tobacco Tobacco use type: Cigarette e-Cigarette/Vaping Use: Never Used Second Hand Smoke Exposure: No service: No Current occupational status: employed Sexual orientation: Straight/Heterosexual Gender identity: Female Cognitive needs: No Hearing needs: No Vision needs: Yes Female Reproductive History Menstrual Age of Menarche: 10 Review of Systems Const All systems reviewed & are unremarkable except as noted in HPI and below Physical Exam Vital Signs: Last Vital Signs Temp 98.4 F 01/01/24 14:32 Pulse 84 01/01/24 14:32 BP 124/72 01/01/24 14:32 Pulse Ox 99 01/01/24 14:32 Oxygen Delivery Method Room Air 01/01/24 14:32 BMI result Body Mass Index 29.4 Const General: cooperative, healthy appearing, comfortable and no acute distress Orientation/consciousness: patient oriented x3 Limitations: no limitations HEENT Head: Yes normal to inspection Eyes General: appearance normal, both eyes and all related structures Resp Effort & Inspection: normal respiratory effort and able to speak in complete sentences Skin Other: Light colored area of erythema (healed rash area per pt) on left forearm, areas of erythema left upper forearm with some crusted lesions on right shoulder Neuro General: patient oriented x3 Assessment & Plan Assessment & Plan (1) Allergic dermatitis: Code(s): L23.9 - Allergic contact dermatitis, unspecified cause Plan: Educated patient on washing things, it sounds like she is doing doing a pretty good job but the coils are still spreading a little bit. Sent prescription for hydroxyzine for itching at night. Plan See above Medications: New hydroxyzine HCl 10 mg PO .nighty PRN 14 tabs 0RF itching Coding Level of Care Code Est Pt Level 3 (73195) Diagnoses Allergic dermatitis L23.9
[2024-01-01 14:32] VITALS: BP 124/72; PULSE 84; TEMP 36.9; O2SAT 99; BMI 29.4
== END 2024-01-01 15:16 | disposition home or self-care (01) ==
PROVIDERS: PCP Internal Medicine; Visit Provider Physician Assistant
DX: L23.9 Allergic contact dermatitis, unspecified cause (principal)
CPT/HCPCS: 99213

== ENCOUNTER 2024-03-05 09:22 | Outpatient (AMB) | payer OTHER, SELFPAY ==
[2024-03-05 09:23] VITALS: BP 108/70; PULSE 66; O2SAT 98; BMI 29.2
--- NOTE | 2024-03-05 09:23 | MHC.PC.OV ---
Vital Signs 03/05/24 09:23 Height 5 ft 3 in Weight 165 lb BMI 29.2 BP 108/70 Blood Pressure Location Lt brachial Position Sitting Pulse 66 Pulse Source Pulse Oximeter Pulse Oximetry (%) 98 Oxygen Delivery Method Room Air Intake Visit Reasons: Medication Review - Pre-Aut for new ones Appointment Specialist Required: No Accompanied by: Self / Same As Patient Allergies No Known Allergies Allergy (Verified 03/05/24 09:25) Medication List - Last Reconciled 03/05/24 by Jeff Abebe MD copper (ParaGard T 380A) intrauterine hydroxyzine HCl 10 mg PO .nighty PRN loratadine 10 mg PO DAILY PRN lorazepam 1 mg PO Q6H PRN omeprazole 40 mg PO DAILY Tobacco use date assessed: 06/14/23 Dental Screening Dental Screen Date: 06/14/23 HPI Medication Review - Pre-Aut for new ones HPI Details right shoulder pain for a few months; no injury PFSH Medical History 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 Mother Hypothyroidism Maternal Grandmother No problems noted. Maternal Grandfather Prostate cancer Diabetes Paternal Grandmother Colon cancer CHF (congestive heart failure) CVD (cardiovascular disease) Paternal Grandfather Parkinsons disease Mental health disorder Paternal Aunt Breast cancer Social History Housing: House Alcohol intake: never Patient Tobacco Use Status: Never used Tobacco Tobacco use type: Cigarette e-Cigarette/Vaping Use: Never Used Second Hand Smoke Exposure: No service: No Current occupational status: employed Sexual orientation: Straight/Heterosexual Gender identity: Female Cognitive needs: No Hearing needs: No Vision needs: Yes Female Reproductive History Menstrual Age of Menarche: 10 Questionnaire PHQ-9 Over the last 2 weeks, how often have you been bothered by any of the following problems? 1. Little interest or pleasure in doing things: not at all 2. Feeling down, depressed, or hopeless: not at all 3. Trouble falling or staying asleep, or sleeping too much: not at all 4. Feeling tired or having little energy: not at all 5. Poor appetite or overeating: not at all 6. Feeling bad about yourself - or that you are a failure or have let yourself or your family down: not at all 7. Trouble concentrating on things, such as reading the newspaper or watching television: not at all 8. Moving or speaking so slowly that other people could have noticed. Or the opposite - being so fidgety or restless that you have been moving around a lot more than usual: not at all 9. Thoughts that you would be better off or of hurting yourself in some way: not at all Total score: 0 Depression Screening Interpretation: Negative Depression Screening Done: Yes 32052 - PHQ-9 Billing: Yes Source: Developed by Drs. Toy Nance, Christy Wliey, Fabrice Roberson and colleagues, with an educational swati from [employer]. Thrive Questionnaire Date Thrive assessed: 06/14/23 Are you currently unemployed and looking for a job?: No AUDIT C Alcohol Use Questionnaire (AUDIT-C) 2. How many drinks containing alcohol do you have on a typical day when you are drinking?: 1 or 2 3. How often do you have six or more drinks on one occasion?: Never Total Score: 0 AGATHA-7 AMB Questionnaire AGATHA-7 Date AGATHA - 7 assessed: 06/14/23 Source: Developed by Drs. Toy Nance, Christy Wiley, Fabrice Roberson and colleagues, with an educational swati from [employer]. Review of Systems Const Denies chills, Denies headache(s) and Denies weight loss ENT Denies headache(s) Card Denies chest pain, Denies syncope, Denies irregular heart rhythm and Denies dyspnea Resp Denies chest congestion, Denies cough and Denies dyspnea GI Denies abdominal pain, Denies change in stool character, Denies nausea and Denies vomiting Musc Denies deformity and Denies joint swelling Neuro Denies syncope and Denies headache(s) Physical exam (Primary Care) Vital Signs: Last Vital Signs Pulse 66 03/05/24 09:23 BP 108/70 03/05/24 09:23 Pulse Ox 98 03/05/24 09:23 Oxygen Delivery Method Room Air 03/05/24 09:23 BMI result Body Mass Index 29.2 Tobacco/Smoking Status: Tobacco use Status Tobacco use date assessed 06/14/23 03/05/24 09:28 Patient Tobacco Use Status Never used Tobacco 03/05/24 09:28 Tobacco use type Cigarette 03/05/24 09:28 e-Cigarette/Vaping Use Never Used 03/05/24 09:28 PHQ-9: PHQ-9 Score PHQ-9: Total score 0 03/05/24 09:41 Depression Screening Interpretation: Negative Thrive Assessment: Date of Thrive Assessment Date Thrive assessed 06/14/23 03/05/24 09:28 Const General: cooperative, comfortable, no acute distress and alert Neck Neck: Yes no lymphadenopathy Thyroid: Thyroid normal Resp Effort & Inspection: normal respiratory effort Auscultation: clear to auscultation bilaterally Percussion: percussion normal Cardio Jugular venous distension: no JVD Palpation: normal PMI Rate: regular rate Rhythm: regular rhythm Heart sounds: S1 normal heart sound present and S2 normal heart sound present GI Inspection: Yes normal to inspection Palpation (GI): No hepatosplenomegaly present Skin General skin exam: no rashes or lesions noted Extrem General: Yes no clubbing, cyanosis or edema Coding Level of Care Code Est Pt Level 3 (86803) Diagnoses Shoulder pain, right M25.511 Assessment & Plan Assessment & Plan (1) Shoulder pain, right: Code(s): M25.511 - Pain in right shoulder Plan: xr and PT to be considered; ice and NSAIDS Orders: Orders XR shoulder RT min 2V Today M25.519 - Pain in unspecified shoulder
== END 2024-03-05 11:17 | disposition home or self-care (01) ==
PROVIDERS: PCP Internal Medicine; Visit Provider Internal Medicine
DX: M25.511 Pain in right shoulder (principal)

== ENCOUNTER → 2024-03-05 09:22 | Outpatient (BNVA) | payer OTHER, SELFPAY | PROVIDERS: PCP Internal Medicine; Visit Provider Internal Medicine ==

== ENCOUNTER 2024-03-27 15:56 | Outpatient (REF) | payer OTHER, SELFPAY | END 2024-03-27 15:57 | disposition home or self-care (01) | LOC: HO.XRAY 15:56 | PROVIDERS: PCP Internal Medicine; Visit Provider Internal Medicine | DX: M79.641 Pain in right hand (principal); M25.521 Pain in right elbow; M25.511 Pain in right shoulder | CPT/HCPCS: 73030; 73070; 73120 ==

== ENCOUNTER → 2024-03-27 15:59 | Outpatient (BNV) | payer OTHER, SELFPAY | PROVIDERS: PCP Internal Medicine; Visit Provider Radiology Diagnostic Radiology | DX: M25.511 Pain in right shoulder (principal); M25.521 Pain in right elbow; M79.641 Pain in right hand | CPT/HCPCS: 73030; 73080; 73130 ==

== ENCOUNTER 2024-06-26 13:35 | Outpatient (AMB) | payer OTHER, SELFPAY ==
--- NOTE | 2024-06-26 13:39 | A.OFFPC_ITS ---
Vital Signs 06/26/24 13:40 Height 5 ft 3 in Weight 171 lb 8 oz BMI 30.4 BP 100/66 Blood Pressure Location Lt brachial Position Sitting Pulse 67 Pulse Source Pulse Oximeter Temp 97.1 F Temp Source Skin Pulse Oximetry (%) 97 Oxygen Delivery Method Room Air Intake Visit Reasons: Annual exam Intake Note: Patient is here today for a physical. Older Worker Specialist Required: No Jewelry Manager: Not Required per policy Accompanied by: Self / Same As Patient Allergies No Known Allergies Allergy (Verified 06/26/24 13:40) Medication List - Last Reconciled 06/26/24 by Jeff Abebe MD copper (ParaGard T 380A) intrauterine fluticasone propionate 50 mcg/actuation (Flonase Allergy Relief) 1 spray intranasal DAILY loratadine 10 mg PO DAILY PRN lorazepam 1 mg PO Q6H PRN omeprazole 40 mg PO BID Tobacco use date assessed: 06/26/24 Dental Screening Dental Screen Date: 06/26/24 Did you have a dental visit in the last 12 months?: Yes Did you have a dental problem in the last 6 months where you did not have access to dental care?: No Was dental information given to patient?: Patient has dentist HPI Annual exam HPI Details healthy [facility] Medical History 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 Mother Hypothyroidism Maternal Grandmother No problems noted. Maternal Grandfather Prostate cancer Diabetes Paternal Grandmother Colon cancer CHF (congestive heart failure) CVD (cardiovascular disease) Paternal Grandfather Parkinsons disease Mental health disorder Paternal Aunt Breast cancer Social History (Updated 06/26/24 @ 13:45 by JUDITH Nuñez) Housing: House Alcohol intake: current Alcohol intake frequency: holidays/special occasions only Patient Tobacco Use Status: Never used Tobacco Tobacco use type: Cigarette e-Cigarette/Vaping Use: Never Used Second Hand Smoke Exposure: No service: No Current occupational status: employed Sexual orientation: Straight/Heterosexual Gender identity: Female Cognitive needs: No Hearing needs: No Vision needs: Yes (Glasses) Female Reproductive History Menstrual Age of Menarche: 10 Questionnaire PHQ-9 Over the last 2 weeks, how often have you been bothered by any of the following problems? 1. Little interest or pleasure in doing things: several days 2. Feeling down, depressed, or hopeless: not at all 3. Trouble falling or staying asleep, or sleeping too much: several days 4. Feeling tired or having little energy: not at all 5. Poor appetite or overeating: not at all 6. Feeling bad about yourself - or that you are a failure or have let yourself or your family down: not at all 7. Trouble concentrating on things, such as reading the newspaper or watching television: not at all 8. Moving or speaking so slowly that other people could have noticed. Or the opposite - being so fidgety or restless that you have been moving around a lot more than usual: not at all 9. Thoughts that you would be better off or of hurting yourself in some way: not at all Total score: 2 Depression Screening Interpretation: Positive Depression Screening Done: Yes Source: Developed by Drs. Toy Nance, Christy Wiley, Fabrice Roberson and colleagues, with an educational swati from [employer]. Thrive Questionnaire Date Thrive assessed: 06/26/24 I am a: Patient What is your living situation today?: I have a steady place to live Within the past 12 months, did the food you bought not last and you didn't have the money to get more?: Never true Within the past 12 months, did you worry whether your food would run out before you got money to buy more?: Never true Do you have trouble paying for medicines?: No Do you have trouble getting transportation to medical appointments?: No Do you have trouble paying your heating and electricity bill?: No Do you have trouble taking care of your child, family member or friend?: No Do you have trouble with day-to-day activities such as bathing, preparing meals, shopping, managing finances, etc.?: No Are you currently unemployed and looking for a job?: No Are you interested in more education?: No Please select the resources that you would like help with: None Currently or been in a relationship where the following occur: I choose not to answer THRIVE Score: 0 AUDIT C Alcohol Use Questionnaire (AUDIT-C) 1. How often do you have a drink containing alcohol?: Monthly or less 2. How many drinks containing alcohol do you have on a typical day when you are drinking?: 1 or 2 3. How often do you have six or more drinks on one occasion?: Never Total Score: 1 AGATHA-7 AMB Questionnaire AGATHA-7 Date AGATHA - 7 assessed: 06/26/24 Feeling nervous, anxious, or on edge: 1 = Several days Not being able to stop or control worryin = Several days Worrying too much about different things: 0 = Not at all Trouble relaxin = Not at all Being so restless that it is hard to sit still: 0 = Not at all Becoming easily annoyed or irritable: 1 = Several days Feeling afraid as if something awful might happen: 0 = Not at all Total AGATHA-7 score (0-4 normal; 5-9 mild; 10-14 moderate; 15-21 severe): 3 Source: Developed by Drs. Toy Nance, Christy Wiley, Fabrice Roberson and colleagues, with an educational swati from [employer]. Review of Systems Const Denies chills, Denies fatigue, Denies headache(s) and Denies weight loss Eyes Denies change in vision, Denies diplopia and Denies eye pain ENT Denies vertigo, Denies dizziness, Denies headache(s) and Denies nasal discharge Card Denies chest pain, Denies rapid heart rate and Denies dyspnea on exertion Resp Denies chest congestion, Denies cough, Denies pain with cough and Denies dyspnea on exertion GI Denies abdominal pain, Denies hematochezia and Denies change in bowel habits Musc Denies myalgias, Denies arthralgias and Denies joint swelling Skin/Breast Denies lesions and Denies unusual bruising Neuro Denies vertigo, Denies dizziness, Denies headache(s) and Denies focal weakness Endo Denies fatigue Physical exam (Primary Care) Vital Signs: Last Vital Signs Temp 97.1 F 06/26/24 13:40 Pulse 67 06/26/24 13:40 BP 100/66 06/26/24 13:40 Pulse Ox 97 06/26/24 13:40 Oxygen Delivery Method Room Air 06/26/24 13:40 BMI result Body Mass Index 30.4 Tobacco/Smoking Status: Tobacco use Status Tobacco use date assessed 06/26/24 06/26/24 13:47 Patient Tobacco Use Status Never used Tobacco 06/26/24 13:47 Tobacco use type Cigarette 06/26/24 13:47 e-Cigarette/Vaping Use Never Used 06/26/24 13:47 PHQ-9: PHQ-9 Score PHQ-9: Total score 2 06/26/24 13:47 Depression Screening Interpretation: Positive Thrive Assessment: Date of Thrive Assessment Date Thrive assessed 06/26/24 06/26/24 13:47 Currently or been in a relationship where the following occur: I choose not to answer Const General: cooperative, healthy appearing and no acute distress Orientation/consciousness: oriented to person, oriented to place and oriented to time HENMT Head: Yes normal to inspection, Yes normocephalic and Yes atraumatic Mouth: Normal oral and palatal mucosa present and tongue normal Throat: Yes posterior oropharynx normal and Yes uvula midline Eyes General: appearance normal, both eyes and all related structures Neck Neck: Yes normal visual inspection, Yes full ROM and Yes no lymphadenopathy Thyroid: Thyroid normal Carotids: normal carotid upstroke Chest Chest palpation & inspection: normal inspection of the chest Resp Effort & Inspection: normal respiratory effort and able to speak in complete sentences Auscultation: clear to auscultation bilaterally Cardio Jugular venous distension: no JVD Palpation: normal PMI Rate: regular rate Rhythm: regular rhythm Heart sounds: S1 normal heart sound present and S2 normal heart sound present GI Inspection: Yes normal to inspection Palpation (GI): Soft to palpation and No hepatosplenomegaly present Auscultation: normal bowel sounds General: Yes no CVA tenderness Back/Spine/Pelvis Back: no CVA tenderness Skin General skin exam: no rashes or lesions noted Neuro General: oriented to person, oriented to place and oriented to time Extrem General: Yes normal to inspection and Yes full ROM Coding Level of Care Code Est Pt Prev Care 40-64y(61000) Diagnoses Physical exam Z00.00 Assessment & Plan Assessment & Plan (1) Physical exam: Code(s): Z00.00 - Encounter for general adult medical examination without abnormal findings Category: Medical Plan: healthy; do labs; chronic elbow pain referred to OT Orders: Orders Lipid Panel Today Z13.220 - Encounter for screening for lipoid disorders Thyroid Stimulating Hormone Today Z13.29 - Encounter for screening for other suspected endocrine disorder Complete Blood Count Auto Diff Today Z13.0 - Encounter for screening for diseases of the blood and blood-forming organs and certain disorders involving the immune mechanism Comprehensive [place]. Panel Fast Today Z13.9 - Encounter for screening, un specified OT Evaluation and Treatment Today M77.8 - Other enthesopathies, not elsewhere classified
[2024-06-26 13:40] VITALS: BP 100/66; PULSE 67; TEMP 36.2; O2SAT 97; BMI 30.4
--- OUTSIDE RECORDS SUMMARY | 2024-06-26 13:42 | XMS_ITS | Clinical Summary ---
Author Organization [facility] it Address [address] [place] [address] Care Team Providers Care Network Security Officer Name Role Phone Unavailable Primary Care Provider Unavailabl e Social History Tobacco Use Types Packs/Day Years Used Date Smoking Tobacco: Never Assessed Sex and Gender Information Value Date Recorded Sex Assigned at Not on file Gender Identity Not on file Sexual Orientation Not on file Plan of Treatment Health Maintenance Due Date Last Done Comments Breast Cancer Screening 1978 DTaP,Tdap,and Td Vaccines (1 - Tdap) 1997 Hepatitis B Vaccines (1 of 3 - 19+ 3-dose series) 1997 Cervical Cancer Screening: P ap Smear 1999 COVID-19 Vaccine (2023-2 5 season) 2024 Influenza Vaccine (#1) 2024 HIB Vaccines Aged Out No longer eligi ble based on patient's age to complete this topic HPV Vaccines Aged Out No longer eligi ble based on patient's age to complete this topic Hepatitis A Vaccines Aged Out No long er eligible based on patient's age to complete this topic IPV Vaccines Aged Out No longer eligi ble based on patient's age to complete this topic MMR Vaccines Aged Out No longer eligi ble based on patient's age to complete this topic Meningococcal ACWY Vaccine Aged Out N o longer eligible based on patient's age to complete this topic Pneumococcal Vaccine: Pediat rics (0 to 5 Years) and At-Risk Patients (6 to 64 Years) Aged Out No longer eligible b ased on patient's age to complete this topic RSV Immunization Patients Un rahel 20 months Aged Out No longer eligible b ased on patient's age to complete this topic Varicella Vaccines Aged Out No longer eligible based on patient's age to complete this topic
== END 2024-06-26 14:08 | disposition home or self-care (01) ==
PROVIDERS: PCP Internal Medicine; Visit Provider Internal Medicine
DX: Z00.00 Encounter for general adult medical examination without abnormal findings (principal)

== ENCOUNTER → 2024-06-26 13:35 | Outpatient (BNVA) | payer OTHER, SELFPAY | PROVIDERS: PCP Internal Medicine; Visit Provider Internal Medicine ==

== ENCOUNTER 2024-06-29 07:30 | Outpatient (REF) | payer OTHER, SELFPAY ==
--- OUTSIDE RECORDS SUMMARY | 2024-06-29 08:04 | XMS_ITS | Clinical Summary ---
Author Organization [facility] it Address [address] [place] [address] Care Team Providers Care Economics Professor Name Role Phone Unavailable Primary Care Provider [...]
[2024-06-29 08:18] LABS: MANUAL DIFF FLAG NO
[2024-06-29 08:48] LABS: Basophils Percent Auto 0.5 % (0-2); Eosinophils Percent Auto 0.5 % (0-4); Hematocrit 28.1 % (37.0-47.0); Hemoglobin 8.5 g/dl (12.0-16.0); Imm Gran Abs Auto 0.02 X10*3/uL (0.00-0.03); Imm Gran Pct Auto 0.5 % (0.0-0.4); Lymphocytes Absolute Auto 1.4 X10*3/uL (1.2-4.9); Lymphocytes Percent Auto 33.6 % (20-40); Mean Corpuscular HGB Conc 30.2 g/dl (31.0-35.0); Mean Corpuscular Hemoglobin 21.8 pg (27.0-33.0); Mean Corpuscular Volume 72.1 fL (80.0-98.0); Mean Platelet Volume 9.1 fL (9.4-12.3); Monocytes Absolute Auto 0.4 X10*3/uL (0.1-1.2); Monocytes Percent Auto 8.2 % (2-11); Neutrophils Absolute Auto 2.4 x10*3/uL (2.0-8.3); Neutrophils Percent Auto 56.7 % (45-73); Platelet Count 291 X10*3/uL (160-400); Red Cell Distribution Width 16.8 % (11.0-16.0); White Blood Count 4.3 X10*3/uL (4.8-10.8)
[2024-06-29 09:38] LABS: Alanine Aminotransferase 9 U/L (0-31); Albumin Level 4.2 g/dL (3.5-5.0); Alkaline Phosphatase 43 U/L (39-117); Anion Gap 10 (12-20); Aspartate Amino Transferase 20 U/L (5-31); Bilirubin Total 0.4 mg/dL (0.0-1.0); Blood Urea Nitrogen 11 mg/dL (9-16); Calcium 8.4 mg/dL (8.4-10.2); Carbon Dioxide 24 mmol/L (22-29); Chloride 108 mmol/L (96-108); Cholesterol 213 mg/dL (<200); Estimated Glomerular Filt Rate > 60; Glucose Fasting 93 mg/dL (60-99); HDL Cholesterol 62 mg/dL (>40); LDL Cholesterol Calculated 136 mg/dL (<100); Sodium 138 mmol/L (135-145); Total Protein 7.1 g/dL (6.5-8.0); Triglycerides 76 mg/dL (<150)
[2024-06-29 09:56] LABS: Thyroid Stimulating Hormone 2.62 uIU/mL (0.32-4.0)
[2024-06-30 01:38] LABS: CT PCR NOT DETECTED (Not Detect.); NG PCR NOT DETECTED (Not Detect.)
== END 2024-06-29 07:31 | disposition home or self-care (01) ==
LOC: HO.LAB 07:30
PROVIDERS: Absent Provider Obstetrics & Gynecology; PCP Internal Medicine; Visit Provider Obstetrics & Gynecology
DX: Z01.419 Encounter for gynecological examination (general) (routine) without abnormal findings (principal); N93.9 Abnormal uterine and vaginal bleeding, unspecified; Z13.29 Encounter for screening for other suspected endocrine disorder; Z13.220 Encounter for screening for lipoid disorders; Z13.0 Encounter for screening for diseases of the blood and blood-forming organs and certain disorders involving the immune mechanism; Z13.6 Encounter for screening for cardiovascular disorders
CPT/HCPCS: 36415; 80053; 80061; 84443; 85025; 87491; 87591

== ENCOUNTER 2024-06-29 08:04 | Outpatient (REF) | payer OTHER, SELFPAY ==
[2024-06-29 08:48] LABS: Hematocrit 27.5 % (37.0-47.0); Hemoglobin 8.4 g/dl (12.0-16.0); Mean Corpuscular HGB Conc 30.5 g/dl (31.0-35.0); Mean Corpuscular Hemoglobin 21.9 pg (27.0-33.0); Mean Corpuscular Volume 71.8 fL (80.0-98.0); Mean Platelet Volume 9.3 fL (9.4-12.3); Platelet Count 297 X10*3/uL (160-400); Red Blood Count 3.83 X10*6/uL (4.20-5.50); Red Cell Distribution Width 16.8 % (11.0-16.0); White Blood Count 4.2 X10*3/uL (4.8-10.8)
[2024-06-29 09:49] LABS: HCG Quantitative < 2 mIU/mL
[2024-06-30 16:49] LABS: Follicle Stimulating Hormone 16.1 mIU/mL; Lutenizing Hormone 8.9 mIU/mL; Prolactin 7.6 ng/mL
== END 2024-06-29 08:05 | disposition home or self-care (01) ==
LOC: HO.LNP 08:04
PROVIDERS: Visit Provider Obstetrics & Gynecology
DX: N93.9 Abnormal uterine and vaginal bleeding, unspecified (principal); Z13.0 Encounter for screening for diseases of the blood and blood-forming organs and certain disorders involving the immune mechanism; Z13.29 Encounter for screening for other suspected endocrine disorder
CPT/HCPCS: 83001; 83002; 84146; 84443; 84702; 85027

== ENCOUNTER 2024-07-13 13:59 | Outpatient (REF) | payer OTHER, SELFPAY ==
--- NOTE | ~2024-07-13 | US_ITS ---
CLINICAL HISTORY: N93.9 - Abnormal uterine and vaginal bleeding, unspecified US female pelvis LMP:2 weeks ago. Technique: Ultrasound examination of the pelvis was performed with transabdominal and transvaginal technique for better visualization of the ovaries. Images include: color Doppler. Comparison: 05/30/22 Findings: Retroverted uterus measuring 8.1 x 4.7 x 5.4cm without masses. Intrauterine device in appropriate position. Normal endometrial thickness of 0.7cm. The right ovary is normal in size, measuring 2.6 x 2.5 x 2.7cm, volume of 9.2mL. There is normal echogenicity and vascularity. No lesions. The left ovary is normal in size, measuring 4.0 x 1.1 x 2.4cm, volume of 5.5mL. There is normal echogenicity and vascularity. No lesions. No free fluid. Impression: Normal pelvic ultrasound. This document has been electronically signed by: Diana Allred MD on 07/13/2024 15:04:34
== END 2024-07-13 14:00 | disposition home or self-care (01) ==
LOC: HO.US 13:59
PROVIDERS: PCP Internal Medicine; Visit Provider Obstetrics & Gynecology
DX: N93.9 Abnormal uterine and vaginal bleeding, unspecified (principal)
CPT/HCPCS: 76830; 76856

== ENCOUNTER → 2024-07-13 14:01 | Outpatient (BNV) | payer OTHER, SELFPAY | PROVIDERS: PCP Internal Medicine; Visit Provider Radiology Diagnostic Radiology | DX: N93.9 Abnormal uterine and vaginal bleeding, unspecified (principal) | CPT/HCPCS: 76830; 76856 ==

== ENCOUNTER 2024-07-20 09:41 | Outpatient (AMB) | payer OTHER, SELFPAY ==
--- OUTSIDE RECORDS SUMMARY | 2024-07-20 10:34 | XMS_ITS | Clinical Summary ---
Author Organization [facility] it Address [address] [place] [address] Care Team Providers Care Plasterer Spot Name Role Phone Unavailable Primary Care Provider Unavailabl e Social History Tobacco Use Types Packs/Day Years Used Date Smoking Tobacco: Never Assessed Comments Unknown Sex and Gender Information Value Date Recorded Sex Assigned at Not on file Legal Sex Female 2:48 AM EST Gender Identity Not on file Sexual Orientation [...] patient's age to complete this topic Meningococcal B Vacine Aged Out No lo nger eligible based on patient's age to complete [...]
[2024-07-20 10:38] VITALS: BP 110/68; PULSE 80; TEMP 37.2; O2SAT 98; BMI 30.3
--- NOTE | 2024-07-20 10:38 | AM.OFFWIN_ITS ---
Intake Vital Signs 07/20/24 10:38 Height 5 ft 3 in Weight 171 lb BMI 30.3 BP 110/68 Blood Pressure Location Lt brachial Position Sitting Pulse 80 Pulse Source Pulse Oximeter Temp 99.0 F Temp Source Oral Pulse Oximetry (%) 98 Intake Visit Reasons: EP-sinus pressure and congestion Intake Note: pt is here for sinus pressure and congestion Patient Tobacco Use Status: Never used Tobacco Allergies No Known Allergies Allergy (Verified 07/20/24 10:38) Do you need a note to return to daycare/school/sports/work: No HPI HPI Comments History of Present Illness Details History - The patient is a 44-year-old female pr esenting with nasal congestion and post- nasal drip lasting over two weeks. - Symptoms include sinus pain localized to the upper left teeth and general malaise, with fatigue exacerbated by childcare responsibilities. - She reports worsening symptoms despite home remedies such as humidifier usage and steam inhalation. - she expresses reluctance towards nasal irrigation methods. - She reports past treatment with a Z-Pa k for a similar condition Physical Exam General: Cooperative, healthy appearing, comfortable and no acute distress Orientation/consciousness: Patient oriented x3 Limitations: No limitations Head: Normal to inspection Ears: Hearing grossly normal bilaterally, external ears normal and TM's normal bilaterally Nose: Normal external nose present, Normal nares present and No nasal discharge present Face and sinus: Normal facial exam and Sinuses tender on the left side Mouth: Normal oral and palatal mucosa present and moist mucous membranes Throat: Yes tonsils normal, Yes uvula midline. Posterior oropharynx erythema Eyes: Appearance normal, both eyes and all related structures Neck: Normal visual inspection Respiratory: Normal respiratory effort, able to speak in complete sentences, Coughing intermittently in the morning, no respiratory distress, not tachypneic, no tripod positioning and no use of accessory muscles Skin: No rashes or lesions noted Neuro: Patient oriented x3 Extremities: Normal to inspection and Yes no clubbing, cyanosis or edema PFSH Medical History 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 Mother Hypothyroidism Maternal Grandmother No problems noted. Maternal Grandfather Prostate cancer Diabetes Paternal Grandmother Colon cancer CHF (congestive heart failure) CVD (cardiovascular disease) Paternal Grandfather Parkinsons disease Mental health disorder Paternal Aunt Breast cancer Social History Housing: House Alcohol intake: current Alcohol intake frequency: holidays/special occasions only Patient Tobacco Use Status: Never used Tobacco Tobacco use type: Cigarette e-Cigarette/Vaping Use: Never Used Second Hand Smoke Exposure: No service: No Current occupational status: employed Sexual orientation: Straight/Heterosexual Gender identity: Female Cognitive needs: No Hearing needs: No Vision needs: Yes (Glasses) Female Reproductive History Menstrual Age of Menarche: 10 Review of Systems Const All systems reviewed & are unremarkable except as noted in HPI and below Physical Exam Vital Signs: Last Vital Signs Temp 99.0 F 07/20/24 10:38 Pulse 80 07/20/24 10:38 BP 110/68 07/20/24 10:38 Pulse Ox 98 07/20/24 10:38 BMI result Body Mass Index 30.3 Assessment & Plan Assessment & Plan (1) Sinusitis, acute: Code(s): J01.90 - Acute sinusitis, unspecified Qualifiers: Sinusitis location: other Recurrence: non-recurrent Qualified Code(s): J01.80 - Other acute sinusitis Plan: Patient was informed and verbally consented to the use of an ambient scribe for clinic note documentation during this visit The patient is diagnosed with acute sinusitis, presenting with persistent symptoms of nasal congestion, post-nasal drip, and localized sinus pain. Given the prolonged duration exceeding the usual viral course, I have decided to prescribe a five-day course of Augmentin, which is highly effective against bacterial forms of sinusitis. Education was provided on appropriate saline nasal spray usage to manage dryness and irritation. The patient was also informed about the potential benefits of proper use of Flonase. For nasal irrigation, the use of distilled water is recommended to ensure safety. The medication will be prepared for pickup from the pharmacy. Medications: New amoxicillin-pot clavulanate 875-125 mg 1 tab PO Q12H 10 tabs 0RF Coding Level of Care Code Est Pt Level 3 (17454) Diagnoses Acute non-recurrent sinusitis of other sinus J01.80 Sinusitis location: other Recurrence: non-recurrent
== END 2024-07-20 11:12 | disposition home or self-care (01) ==
PROVIDERS: PCP Internal Medicine; Visit Provider Physician Assistant
DX: J01.80 Other acute sinusitis (principal)

== ENCOUNTER 2024-07-23 12:26 | Outpatient (REF) | payer OTHER, SELFPAY ==
--- OUTSIDE RECORDS SUMMARY | 2024-07-23 15:29 | XMS_ITS | Clinical Summary ---
Author Organization [facility] it Address [address] [place] [address] Care Team Providers Care Position Description Manager Name Role Phone Unavailable Primary Care Provider [...]
== END 2024-07-23 12:27 | disposition home or self-care (01) ==
LOC: HO.LNP 12:26
PROVIDERS: PCP Internal Medicine; Visit Provider Obstetrics & Gynecology
DX: N93.9 Abnormal uterine and vaginal bleeding, unspecified (principal); Z32.02 Encounter for pregnancy test, result negative
CPT/HCPCS: 58100; 81025; 88305

== ENCOUNTER 2024-07-23 12:26 | Outpatient (AMB) | payer OTHER, SELFPAY ==
--- NOTE | 2024-07-23 12:28 | MHC.OFFVIS ---
Intake Visit Reasons: EMB/US follow up Allergies No Known Allergies Allergy (Verified 07/20/24 10:38) HPI Comments Details: Presenting for EMB. No history of heavy vaginal bleeding. H&H in 07/20= 8.4/27.5 PFSH Medical History 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 Mother Hypothyroidism Maternal Grandmother No problems noted. Maternal Grandfather Prostate cancer Diabetes Paternal Grandmother Colon cancer CHF (congestive heart failure) CVD (cardiovascular disease) Paternal Grandfather Parkinsons disease Mental health disorder Paternal Aunt Breast cancer Social History Housing: House Alcohol intake: current Alcohol intake frequency: holidays/special occasions only Patient Tobacco Use Status: Never used Tobacco Tobacco use type: Cigarette e-Cigarette/Vaping Use: Never Used Second Hand Smoke Exposure: No service: No Current occupational status: employed Sexual orientation: Straight/Heterosexual Gender identity: Female Cognitive needs: No Hearing needs: No Vision needs: Yes (Glasses) Female Reproductive History Menstrual Age of Menarche: 10 Office Procedures Endometrial Biopsy Details: The patient was counseled regarding the indication and benefits of endometrial sampling to rule out endometrial pathology including not limited to endometrial hyperplasia or endometrial cancer and others; The alternatives (Either do nothing vs. hysteroscopy D&C) & the risks were discussed with the patient including but not limited: pain, uterine perforation, bleeding, infection, possible injury to bladder, bowel, ureter, possible need for blood transfusion with all its possible risks. The patient verbalized understanding all questions answered and signed consent. Urine test done in the office was negative The patient was placed into the dorsal lithotomy position; a speculum was inserted in the vagina. Using aseptic technique for the procedure, the cervix was cleansed with Betadine. The anterior lip of the cervix was grasped with a single tooth tenaculum. The uterus was sounded to 7 cm with a 4 mm Pipelle was used. Tissues samples were obtained and placed in formalin, in a patient labeled container and sent to the pathology department. At the end of the procedure, there was minimal bleeding noted The patient tolerated the procedure well and was discharged in good condition with the following instructions: Nothing in the vagina until the bleeding stops. No sex until the bleeding stops, to call if any of the following occurs: fever (>100.4), flu-like symptoms, abdominal pain, heavy bleeding, four smelling vaginal discharge. The patient was instructed to schedule a Follow up appointment in 2 weeks to discuss pathology results of the biopsy and treatment options. This note was generated with a voice recognition program. Some errors may have been overlooked during the review of this note. Sometimes these errors may affect the content or meaning of a given sentence. [id number] Biopsy Assessment & Plan Assessment & Plan (1) Anemia: Code(s): D64.9 - Anemia, unspecified Category: Medical Plan: Will refer to heme Onc for further evaluation/treatment (2) Abnormal uterine bleeding (AUB): Code(s): N93.9 - Abnormal uterine and vaginal bleeding, unspecified Category: Medical Plan: EMB done, see procedure note Orders: Orders AMB Endometrial Biopsy Today N93.9 - Abnormal uterine and vaginal bleeding, unspecified Referrals Hematology & Oncology Referral D64.9 - Anemia, unspecified Coding Level of Care Code Est Pt Level 3 (61886) Procedure Only Diagnoses Anemia D64.9 Abnormal uterine bleeding (AUB) N93.9 CPT Codes Endometrial Biopsy - CPT: 22440-Moslaigbnnz Biopsy ([id number])
--- OUTSIDE RECORDS SUMMARY | 2024-07-23 14:50 | XMS_ITS | Clinical Summary ---
Author Organization [facility] it Address [address] [place] [address] Care Team Providers Care Digital Forensics Investigator Name Role Phone Unavailable Primary Care Provider [...]
== END 2024-07-23 13:21 | disposition home or self-care (01) ==
PROVIDERS: PCP Internal Medicine; Visit Provider Obstetrics & Gynecology
DX: N93.9 Abnormal uterine and vaginal bleeding, unspecified (principal); D64.9 Anemia, unspecified; Z32.02 Encounter for pregnancy test, result negative
CPT/HCPCS: 58100

== ENCOUNTER 2024-08-11 13:06 | Outpatient (AMB) | payer OTHER, SELFPAY ==
--- NOTE | 2024-08-11 13:07 | A.OFFVIS_ITS ---
Intake Visit Reasons: EMB results Allergies No Known Allergies Allergy (Verified 07/20/24 10:38) HPI Comments Details: The patient scheduled a telehealth visit for follow-up to discuss the results of her abnormal uterine bleeding workup and options of treatment. The following workup was done.: H&H= 8.4/27.5 TSH, prolactin, hCG, GC and chlamydia were negative. Endometrial biopsy pathology showed the following: Acute endometritis in a background of late secretory endometrium; negative for atypia, hyperplasia or malignancy. Co testing was done in 06/18 was negative. Mammogram was done in 07/20 was BI-RADS 1 Pelvic ultrasound showed the following: Impression: Normal pelvic ultrasound. The patient has not had any recent abnormal or heavy menstrual cycles PFSH Medical History 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 Mother Hypothyroidism Maternal Grandmother No problems noted. Maternal Grandfather Prostate cancer Diabetes Paternal Grandmother Colon cancer CHF (congestive heart failure) CVD (cardiovascular disease) Paternal Grandfather Parkinsons disease Mental health disorder Paternal Aunt Breast cancer Social History Housing: House Alcohol intake: current Alcohol intake frequency: holidays/special occasions only Patient Tobacco Use Status: Never used Tobacco Tobacco use type: Cigarette e-Cigarette/Vaping Use: Never Used Second Hand Smoke Exposure: No service: No Current occupational status: employed Sexual orientation: Straight/Heterosexual Gender identity: Female Cognitive needs: No Hearing needs: No Vision needs: Yes (Glasses) Female Reproductive History Menstrual Age of Menarche: 10 Review of Systems Const All systems reviewed & are unremarkable except as noted in HPI and below Reports as per HPI and Reports no additional complaints GI Reports no additional complaints Reports no additional complaints Telehealth Telehealth Telehealth Platform: [facility] Location of provider rendering services: practice address Location of patient: address on file Patient Identification confirmed using: Name, : Yes Telehealth method: video Patient verbally consented to treatment: Yes Patient verbally consented to billing insurance company: Yes Patient informed of any privacy concerns related to visit: Yes Minutes spent on Phone/Video with Pt.: 8 Assessment & Plan Assessment & Plan (1) Abnormal uterine bleeding (AUB): Comment: Anemia Code(s): N93.9 - Abnormal uterine and vaginal bleeding, unspecified Category: Medical Plan: The patient has appointment with heme Onc for anemia Discussed with the patient the results of the work up done and options of treatment including Lysteda, BCP's, Mirena IUD, endometrial ablation and hysterectomy. All pros, cons, risks and benefits if each option was discussed with the patient and the patient decided to think about it and get back to us. All questions answered the patient verbalized understanding. I spent a total of 20 minutes reviewing the chart, talking to the patient via video and documenting in the medical record. Coding Level of Care Code Tele Est Pt Level 3 (71173) Diagnoses Abnormal uterine bleeding (AUB) N93.9
--- OUTSIDE RECORDS SUMMARY | 2024-08-11 15:21 | XMS_ITS | Clinical Summary ---
Author Organization [facility] it Address [address] [place] [address] Care Team Providers Care Live Truck Operator Name Role Phone Unavailable Primary Care Provider [...]
== END 2024-08-11 14:31 | disposition home or self-care (01) ==
LOC: HO.HWS 13:06
PROVIDERS: PCP Internal Medicine; Visit Provider Obstetrics & Gynecology
DX: N93.9 Abnormal uterine and vaginal bleeding, unspecified (principal)
CPT/HCPCS: 99213

== ENCOUNTER → 2024-08-25 13:02 | Outpatient (BNV) | payer OTHER, SELFPAY | PROVIDERS: Referring Provider Obstetrics & Gynecology; Visit Provider Internal Medicine Medical Oncology | DX: D50.9 Iron deficiency anemia, unspecified (principal) | CPT/HCPCS: 99204 ==

== ENCOUNTER 2024-09-03 14:29 | Outpatient (RCR) | payer OTHER, SELFPAY ==
--- NOTE | 2024-09-10 09:26 | MHC.OT.DC ---
[address] [phone] F: [phone] Occupational Therapy Discharge Note Patient Name: Claudia Montaño Provider: Jeff Abebe Diagnosis: Right medial elbow pain Date of Evaluation: 07/21/24 Date of Discharge: 09/02/24 Treatments to Date: 9 Discharge Status: Achieved Goals Improved Function Independent with HEP Discharge Summary: Claudia has progressed very well in OT and met all goals set on admission. Right parks and recreation manager strength improved to 70# on the right. Pt is now pain free in right elbow and demonstrates good understanding of all exercises and self taping. Pt is in agreement with discharge. Thank you for this referral! Electronically Signed By: January Tolliver, OTR/L Reviewed/agree with student documentation: Therapist: Please Sign and return to therapist, thank you for your referral.
== END 2024-09-10 09:29 | disposition home or self-care (01) ==
LOC: HO.OTS 14:29
PROVIDERS: PCP Internal Medicine; Visit Provider Internal Medicine
DX: M77.8 Other enthesopathies, not elsewhere classified (principal)
CPT/HCPCS: 97035; 97110; 97140; 97165; 97530

== ENCOUNTER → 2024-09-16 11:45 | Outpatient (BNV) | payer OTHER, SELFPAY | PROVIDERS: PCP Internal Medicine; Visit Provider Internal Medicine | DX: Z12.31 Encounter for screening mammogram for malignant neoplasm of breast (principal) | CPT/HCPCS: 77063; 77067 ==

== ENCOUNTER 2024-09-16 11:47 | Outpatient (REF) | payer OTHER, SELFPAY ==
--- OUTSIDE RECORDS SUMMARY | 2024-09-16 14:14 | XMS_ITS | Clinical Summary ---
Author Organization [facility] it Address [address] [place] [address] Care Team Providers Care Frog Catcher Name Role Phone Unavailable Primary Care Provider [...] Vaccine (2023-2 5 season) 2024 Influenza Vaccine (Season Ended) 2025 HIB Vaccines Aged Out No longer eligi [...] age to complete this topic Meningococcal B Vaccine Aged Out No l onger eligible based on patient's age to complete [...]
== END 2024-09-16 11:48 | disposition home or self-care (01) ==
LOC: HO.MAMMO 11:47
PROVIDERS: PCP Internal Medicine; Visit Provider Internal Medicine
DX: Z12.31 Encounter for screening mammogram for malignant neoplasm of breast (principal)
CPT/HCPCS: 77063; 77067

== ENCOUNTER 2024-10-23 13:30 | Outpatient (RCR) | payer OTHER, SELFPAY ==
[2024-10-02 09:44] VITALS: BP 116/64; PULSE 69; RESP 16; TEMP 36.7; O2SAT 100
[2024-10-02] MEDS: Iron Sucrose Complex 200 MG in 0.9 % Sodium Chloride 100 ML 440 MG IV (09:50)
[2024-10-09 09:41] VITALS: BP 112/68; PULSE 87; RESP 16; TEMP 36.7; O2SAT 100
[2024-10-09] MEDS: Iron Sucrose Complex 200 MG in 0.9 % Sodium Chloride 100 ML 440 MG IV (09:49)
[2024-10-16 09:39] VITALS: BP 107/70; PULSE 70; RESP 16; TEMP 36.7; O2SAT 100
[2024-10-16] MEDS: Iron Sucrose Complex 200 MG in 0.9 % Sodium Chloride 100 ML 440 MG IV (09:46)
[2024-10-23 13:37] VITALS: BP 111/65; PULSE 74; RESP 16; TEMP 36.6; O2SAT 100
[2024-10-23] MEDS: Iron Sucrose Complex 200 MG in 0.9 % Sodium Chloride 100 ML 440 MG IV (13:54)
[2024-10-23 14:03] LABS: Hematocrit 39.4 % (37.0-47.0); Hemoglobin 13.1 g/dl (12.0-16.0); Mean Corpuscular HGB Conc 33.2 g/dl (31.0-35.0); Mean Corpuscular Hemoglobin 28.6 pg (27.0-33.0); Platelet Count 198 X10*3/uL (160-400); Red Blood Count 4.58 X10*6/uL (4.20-5.50); Red Cell Distribution Width 15.8 % (11.0-16.0); White Blood Count 4.5 X10*3/uL (4.8-10.8)
[2024-10-23 14:37] LABS: Ferritin 177 ng/mL (10-250)
== END 2024-10-23 15:34 | disposition home or self-care (01) ==
LOC: HO.INF 13:30
PROVIDERS: Visit Provider Nurse Practitioner Family
DX: D64.9 Anemia, unspecified (principal)
CPT/HCPCS: 36415; 82728; 85027; 96365; 96374; J1756

== ENCOUNTER 2024-11-25 07:51 | Outpatient (AMB) | payer OTHER, SELFPAY ==
--- NOTE | 2024-11-25 07:52 | MHC.OFFVIS ---
Vital Signs 11/25/24 07:58 Height 5 ft 3 in Weight 165 lb BMI 29.2 BP 100/64 Intake Visit Reasons: irregular periods Intake Note: Patient having Iron infusion Machine Adjuster Leader Case Trim Required: No Information Interpreted: non-clinical & clinical Crosscutter Rolled Glass: Crosscutter Rolled Glass Present (Kerrie Jiménez JUDITH) Accompanied by: Self / Same As Patient Allergies No Known Allergies Allergy (Verified 11/25/24 07:59) Is last menstrual period known: Yes Last menstrual period: 10/07/24 HPI Comments Details: Presenting complaining of vaginal spotting over the last 2 months, in addition the patient is complaining of vaginal odor no vaginal discharge or itching Last co testing in 06/18 was negative, last mammogram in 09/18 was BI-RADS 1 PFSH Medical History 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 Mother Hypothyroidism Maternal Grandmother No problems noted. Maternal Grandfather Prostate cancer Diabetes Paternal Grandmother Colon cancer CHF (congestive heart failure) CVD (cardiovascular disease) Paternal Grandfather Parkinsons disease Mental health disorder Paternal Aunt Breast cancer Social History Household Members: Children Are you a primary health care specialist to a significant other at home: Yes Do you presently have visiting nurse or other home services: No Alcohol intake: current Alcohol intake frequency: holidays/special occasions only Patient Tobacco Use Status: Former Tobacco user Tobacco use type: Cigarette e-Cigarette/Vaping Use: Never Used Second Hand Smoke Exposure: No service: No Current occupational status: employed Sexual orientation: Straight/Heterosexual Gender identity: Female Cognitive needs: No Hearing needs: No Vision needs: Yes (Glasses) Female Reproductive History Menstrual Age of Menarche: 10 Date of last menstrual period: 10/07/24 control method: copper IUCD Review of Systems Const All systems reviewed & are unremarkable except as noted in HPI and below Physical Exam Vital Signs: Last Vital Signs BP 100/64 11/25/24 07:58 BMI result Body Mass Index 29.2 General: Yes no CVA tenderness External Female Exam: normal external appearance and normal appearance of the urethra Speculum Exam - Vagina: normal appearance of the vagina, normal palpation, no lesions and no masses Speculum Exam - Cervix: normal appearance of the cervix, normal palpation, no lesions, no masses and nontender Bimanual exam- vagina & uterus: normal bimanual exam, normal palpation, uterine size normal, normal palpation, uterine shape normal, No Cervical tenderness present and non-tender Bimanual Exam- Adnexa, other: normal adnexae Back/Spine/Pelvis Back: no CVA tenderness Results AMB Test Urine AMB Test Urine Negative Last Edit by Kerrie Jiménez CMA on 11/25/24 08:02 Results Reviewed Results Reviewed: Laboratory Last Values [facility]st Clinic Negative 11/25/24 08:02 Assessment & Plan Assessment & Plan (1) Abnormal uterine bleeding (AUB): Code(s): N93.9 - Abnormal uterine and vaginal bleeding, unspecified Category: Medical Plan: Urine test done in the office was negative. GC and chlamydia taken CBC, TSH, FSH/LH, HCG, and pelvic ultrasound ordered. Discussed with the patient the different causes of abnormal bleeding including thyroid disorders, uterine and ovarian pathology, endometrial hyperplasia, carcinoma and other potential causes. Discussed with the patient the work up including CBC (to r/o anemia), TSH, FSH/LH pelvic Ultrasound, endometrial biopsy to r/o endometrial pathology. All questions answered and the patient verbalized understanding. Instructed the patient to schedule an appointment for an endometrial biopsy in 2 weeks. (2) Bacterial vaginosis: Code(s): N76.0 - Acute vaginitis; B96.89 - Other specified bacterial agents as the cause of diseases classified elsewhere Category: Medical Plan: GC and chlamydia cultures with BV panel taken. Will treat with Flagyl 500 mg p.o. b.i.d. x 7 days, Instructions given to the patient to refrain from sexual activity or to use condoms consistently and correctly during the BV treatment regimen, not to douch, it might increase the risk for relapse, and to call if symptoms persist or recur. Orders: Orders Complete Blood Count no Diff Today N93.9 - Abnormal uterine and vaginal bleeding, unspecified Lutenizing Hormone Today N93.9 - Abnormal uterine and vaginal bleeding, unspecified AMB HCG Urine Test Today Z32.02 - Encounter for test, result negative TSH reflex Free T4 Today N93.9 - Abnormal uterine and vaginal bleeding, unspecified HCG Quantitative Today N93.9 - Abnormal uterine and vaginal bleeding, unspecified Follicle Stimulating Hormone Today N93.9 - Abnormal uterine and vaginal bleeding, unspecified US pelvic and transvaginal Today N93.9 - Abnormal uterine and vaginal bleeding, unspecified Medications: New metronidazole 500 mg PO BID 14 tabs 0RF 7 days Coding Level of Care Code Est Pt Level 3 (32425) Diagnoses Abnormal uterine bleeding (AUB) N93.9 Bacterial vaginosis N76.0; B96.89
--- OUTSIDE RECORDS SUMMARY | 2024-11-25 07:53 | XMS_ITS | Clinical Summary ---
Author Organization [facility] it Address [address] [place] [address] Care Team Providers Care Solar Installer Pv Name Role Phone Unavailable Primary Care Provider [...]
[2024-11-25 07:58] VITALS: BP 100/64; BMI 29.2
== END 2024-11-25 08:34 | disposition home or self-care (01) ==
LOC: HO.HWS 07:51
PROVIDERS: Visit Provider Obstetrics & Gynecology
DX: N93.9 Abnormal uterine and vaginal bleeding, unspecified (principal); N76.0 Acute vaginitis; B96.89 Other specified bacterial agents as the cause of diseases classified elsewhere; Z32.02 Encounter for pregnancy test, result negative
CPT/HCPCS: 99213

== ENCOUNTER 2024-11-25 07:51 | Outpatient (REF) | payer OTHER, SELFPAY ==
[2024-11-25 09:03] LABS: Hematocrit 38.4 % (37.0-47.0); Hemoglobin 13.3 g/dl (12.0-16.0); Mean Corpuscular HGB Conc 34.6 g/dl (31.0-35.0); Mean Corpuscular Hemoglobin 30.7 pg (27.0-33.0); Mean Corpuscular Volume 88.7 fL (80.0-98.0); NRBC Abs Auto 0.000 X10*3/uL (0.0-0.012); NRBC Pct Auto 0.0 /100WBC (0.0-0.2); Platelet Count 202 X10*3/uL (160-400); Red Blood Count 4.33 X10*6/uL (4.20-5.50); White Blood Count 4.9 X10*3/uL (4.8-10.8)
[2024-11-26 17:23] LABS: Follicle Stimulating Hormone 109.8 mIU/mL
== END 2024-11-25 07:52 | disposition home or self-care (01) ==
LOC: HO.LAB 07:51
PROVIDERS: Visit Provider Obstetrics & Gynecology
DX: N93.9 Abnormal uterine and vaginal bleeding, unspecified (principal)
CPT/HCPCS: 36415; 81025; 83001; 83002; 84443; 84702; 85027

== ENCOUNTER 2024-11-25 09:21 | Outpatient (REF) | payer OTHER, SELFPAY ==
[2024-11-25 21:11] LABS: Bacterial Vaginosis PCR NEGATIVE (Negative); Candida Group PCR NOT DETECTED (Not Detect); Candida glab krusei PCR NOT DETECTED (Not Detect); Trichomonas vaginalis PCR NOT DETECTED (Not Detect)
[2024-11-25 22:21] LABS: CT PCR NOT DETECTED (Not Detect.); NG PCR NOT DETECTED (Not Detect.)
== END 2024-11-25 09:22 | disposition home or self-care (01) ==
LOC: HO.LNP 09:21
PROVIDERS: Visit Provider Obstetrics & Gynecology
DX: N76.0 Acute vaginitis (principal); N93.9 Abnormal uterine and vaginal bleeding, unspecified; B96.89 Other specified bacterial agents as the cause of diseases classified elsewhere
CPT/HCPCS: 81515; 87491; 87591

== ENCOUNTER 2024-12-17 09:30 | Outpatient (AMB) | payer OTHER, SELFPAY ==
--- NOTE | 2024-12-17 09:43 | MHC.OFFVIS ---
Intake Visit Reasons: EMB Allergies No Known Allergies Allergy (Verified 11/25/24 07:59) HPI Comments Details: Presenting for EMB [facility] Medical History 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 Mother Hypothyroidism Maternal Grandmother No problems noted. Maternal Grandfather Prostate cancer Diabetes Paternal Grandmother Colon cancer CHF (congestive heart failure) CVD (cardiovascular disease) Paternal Grandfather Parkinsons disease Mental health disorder Paternal Aunt Breast cancer Social History Household Members: Children Are you a primary care coordination manager to a significant other at home: Yes Do you presently have visiting nurse or other home services: No Alcohol intake: current Alcohol intake frequency: holidays/special occasions only Patient Tobacco Use Status: Former Tobacco user Tobacco use type: Cigarette e-Cigarette/Vaping Use: Never Used Second Hand Smoke Exposure: No service: No Current occupational status: employed Sexual orientation: Straight/Heterosexual Gender identity: Female Cognitive needs: No Hearing needs: No Vision needs: Yes (Glasses) Female Reproductive History Menstrual Age of Menarche: 10 Review of Systems Const All systems reviewed & are unremarkable except as noted in HPI and below Reports as per HPI and Reports no additional complaints GI Reports no additional complaints Reports no additional complaints Office Procedures Endometrial Biopsy Details: The patient was counseled regarding the indication and benefits of endometrial sampling to rule out endometrial pathology including not limited to endometrial hyperplasia or endometrial cancer and others; The alternatives (Either do nothing vs. hysteroscopy D&C) & the risks were discussed with the patient including but not limited: pain, uterine perforation, bleeding, infection, possible injury to bladder, bowel, ureter, possible need for blood transfusion with all its possible risks. The patient verbalized understanding all questions answered and signed consent. Urine test done in the office was negative The patient was placed into the dorsal lithotomy position; a speculum was inserted in the vagina. Using aseptic technique for the procedure, the cervix was cleansed with Betadine. The anterior lip of the cervix was grasped with a single tooth tenaculum. The uterus was sounded to 7 cm with a 4 mm Pipelle was used. Tissues samples were obtained and placed in formalin, in a patient labeled container and sent to the pathology department. At the end of the procedure, there was minimal bleeding noted The patient tolerated the procedure well and was discharged in good condition with the following instructions: Nothing in the vagina until the bleeding stops. No sex until the bleeding stops, to call if any of the following occurs: fever (>100.4), flu-like symptoms, abdominal pain, heavy bleeding, four smelling vaginal discharge. The patient was instructed to schedule a Follow up appointment in 2 weeks to discuss pathology results of the biopsy and treatment options. This note was generated with a voice recognition program. Some errors may have been overlooked during the review of this note. Sometimes these errors may affect the content or meaning of a given sentence. [id number] Biopsy Results AMB Test Urine AMB Test Urine Negative Last Edit by Kerrie Jiménez CMA on 12/17/24 09:44 Results Reviewed Results Reviewed: Laboratory Last Values [facility]st Clinic Negative 12/17/24 09:44 Assessment & Plan Assessment & Plan (1) Abnormal uterine bleeding (AUB): Code(s): N93.9 - Abnormal uterine and vaginal bleeding, unspecified Category: Medical Plan: EMB done, see procedure note Orders: Orders AMB HCG Urine Test Today Z32.02 - Encounter for test, result negative AMB Endometrial Biopsy Today N93.9 - Abnormal uterine and vaginal bleeding, unspecified Coding Level of Care Code Procedure Only Diagnoses Abnormal uterine bleeding (AUB) N93.9 CPT Codes Endometrial Biopsy - CPT: 17857-Mazphaevzgl Biopsy ([id number])
--- OUTSIDE RECORDS SUMMARY | 2024-12-17 10:11 | XMS_ITS | Clinical Summary ---
[facility] Organization [facility] it Address [address] [place] [address] Care Team Providers Care Canal Tender Name Role Phone Unavailable Primary Care Provider [...] 1999 COVID-19 Vaccine (2023-2 5 season) 2024 Depression Screening 05/27/2024 Influenza Vaccine (#1) 2025 HIB Vaccines Aged Out No longer [...] 5 Years) and At-Risk Patients (6 to 49 Years) Aged Out No longer eligible b ased on patient's age to complete this topic RSV Immunization Patients Un rahel 20 months Aged Out No longer eligible b ased on patient's age to complete this topic Varicella Vaccines Aged Out No longer eligible based on patient's age to complete this topic
--- OUTSIDE RECORDS SUMMARY | 2024-12-17 10:11 | XMS_ITS | Encounter Summary ---
Author Organization [facility] Address [address] [place] [address] Phone Care Team Providers Care Store Facility Technician Name Role Phone Nathen Kinsey MD Primary Care Provider Reason for Referral * Consultation (Elective) - Closed Specialty Diagnoses / Procedures Referred By Samantha morales Referred To Contact Neurology Diagnoses Encounter for consultation System, Provider Not In, PhD [address] [address] Referral ID Status Reason Start Date Expiration Date Visits Re quested Visits Authorized [id number] Closed 03/08/2016 03/08/2017 1 1 Encounter Details Date Type Department Care Team (Latest Contact Info) Description 03/08/2016 Transcribe Orders [facility] [place] of [place]rology [address], [address]th [address], [address] [place] [address] Jacob Carroll MD [address] [place] [phone] Encounter for consultation (Primary Dx) Social History Tobacco Use Types Packs/Day Years Used Date Smoking Tobacco: Former Comments Unknown Sex and Gender Information Value Date Recorded Sex Assigned at Not on file Legal Sex Female 7:33 PM EST Gender Identity Not on file Sexual Orientation Not on file documented as of this encounter Plan of Treatment Scheduled Referrals Name Type Priority Associated Diagnoses Orde r Schedule Ambulatory referral to [facility] Neurology Outpatient Referral Routine Encounter for consultation Ordered: 03/08/2016 documented as of this encounter Visit Diagnoses Diagnosis Encounter for consultation- Primary documented in this encounter Care Teams Store Facility Technician Relationship Specialty Start Date End Date Nathen Kinsey MD [address] [place] [address] PCP - General Internal Medicine 01/26/16 documented as of this encounter Additional Source Comments The information contained in this document represents components of the legal health record. It is not the complete legal health record.[facility]
== END 2024-12-17 09:57 | disposition home or self-care (01) ==
LOC: HO.HWS 09:31
PROVIDERS: Visit Provider Obstetrics & Gynecology
DX: N93.9 Abnormal uterine and vaginal bleeding, unspecified (principal); Z32.02 Encounter for pregnancy test, result negative
CPT/HCPCS: 58100

== ENCOUNTER 2024-12-17 09:30 | Outpatient (REF) | payer OTHER, SELFPAY | END 2024-12-17 09:31 | disposition home or self-care (01) | LOC: HO.LNP 09:30 | PROVIDERS: Visit Provider Obstetrics & Gynecology | DX: N93.9 Abnormal uterine and vaginal bleeding, unspecified (principal); Z32.02 Encounter for pregnancy test, result negative | CPT/HCPCS: 58100; 81025; 88305 ==

== ENCOUNTER 2024-12-24 13:05 | Outpatient (REF) | payer OTHER, SELFPAY ==
--- NOTE | ~2024-12-24 | US_ITS ---
CLINICAL HISTORY: N93.9 - Abnormal uterine and vaginal bleeding, unspecified US pelvis transabdominal and transvaginal Comparison: Pelvic ultrasound 07/13/2024 Findings: Transvaginal scanning performed. The uterus measures 6.9 x 4.2 x 5.4 cm. The uterus is retroverted Normal myometrium. Endometrium 3.7 mm thickness. There is normal endometrial echogenicity. There is an IUD in appropriate position. The right ovary measures 2 x 1.1 x 1.5 cm. Left ovary measures 3.1 x 0.9 x 1.9 cm. Normal color Doppler of both ovaries. Incidentally noted are prominent pelvic vessels. No free fluid. IMPRESSION: No acute findings, IUD in appropriate position, normal endometrium Likely benign prominent pelvic vessels which can be associated with pelvic congestion syndrome. This should be correlated clinically. This document has been electronically signed by: oTy Willis MD on 12/25/2024 09:01:22
--- OUTSIDE RECORDS SUMMARY | 2024-12-24 13:17 | XMS_ITS | Clinical Summary ---
Author Organization [facility] it Address [address] [place] [address] Care Team Providers Care Tombstone Erector Name Role Phone Unavailable Primary Care Provider [...]
--- OUTSIDE RECORDS SUMMARY | 2024-12-24 13:17 | XMS_ITS | Encounter Summary ---
Author Organization [facility] Address [address] [place] [address] Phone Care Team Providers Care Manager Patient Name Role Phone Nathen Kinsey MD Primary Care Provider [phone] Reason for Referral * Consultation (Elective) - Closed Specialty Diagnoses / Procedures Referred By Samantha morales Referred To Contact Neurology Diagnoses Encounter for consultation System, Provider Not In, PhD [address] [address] Referral ID Status Reason Start Date Expiration Date Visits Re quested Visits Authorized [id number] Closed 03/08/2016 03/08/2017 1 1 Encounter Details Date Type Department Care Team (Latest Contact Info) Description 03/08/2016 Transcribe Orders [facility] [place] [address], [address] [place] [address] Jacob Carroll MD [address] [place] [phone] Encounter for consultation (Primary Dx) Social [...] Diagnoses Orde r Schedule Ambulatory referral to [facility] [place] Outpatient Referral Routine Encounter for consultation Ordered: 03/08/2016 documented as of this encounter Visit Diagnoses Diagnosis Encounter for consultation- Primary documented in this encounter Care Teams Manager Patient Relationship Specialty Start Date End Date Nathen Kinsey MD [address] [place] [phone] PCP - General Internal Medicine 01/26/16 documented as of this encounter Additional Source Comments The information contained in this document represents components of the legal health record. It is not the complete legal health record.[facility]
== END 2024-12-24 13:06 | disposition home or self-care (01) ==
LOC: HO.HMGCX 13:05
PROVIDERS: Visit Provider Obstetrics & Gynecology
DX: N93.9 Abnormal uterine and vaginal bleeding, unspecified (principal)
CPT/HCPCS: 76830; 76856

== ENCOUNTER → 2024-12-24 13:08 | Outpatient (BNV) | payer OTHER, SELFPAY | PROVIDERS: Visit Provider Radiology Diagnostic Radiology | DX: I86.2 Pelvic varices (principal); Z97.5 Presence of (intrauterine) contraceptive device | CPT/HCPCS: 76830; 76856 ==

== ENCOUNTER 2025-02-03 08:25 | Outpatient (AMB) | payer OTHER, SELFPAY ==
--- NOTE | 2025-02-03 08:32 | A.OFFVIS_ITS ---
Vital Signs 02/03/25 08:35 Height 5 ft 3 in Weight 165 lb BMI 29.2 Intake Visit Reasons: Us Results/EMB Results/OK pepe [employer] Operations Manager Required: No Information Interpreted: non-clinical & clinical Accompanied by: Self / Same As Patient Allergies No Known Allergies Allergy (Verified 02/03/25 08:39) HPI Comments Details: The patient is presenting for follow-up to discuss the results of her abnormal uterine bleeding workup and options of treatment. The following workup was done.: H&H= 13.3/38.4 TSH, GC and chlamydia were negative. 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 09/18 Mammogram was BI-RADS 1. 01/18 Pelvic ultrasound showed the following: IMPRESSION: No acute findings, IUD in appropriate position, normal endometrium Likely benign prominent pelvic vessels which can be associated with pelvic congestion syndrome. This should be correlated clinically. [facility] Medical History 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 Mother Hypothyroidism Maternal Grandmother No problems noted. Maternal Grandfather Prostate cancer Diabetes Paternal Grandmother Colon cancer CHF (congestive heart failure) CVD (cardiovascular disease) Paternal Grandfather Parkinsons disease Mental health disorder Paternal Aunt Breast cancer Social History Household Members: Children Are you a primary career orientation teacher to a significant other at home: Yes Do you presently have visiting nurse or other home services: No Alcohol intake: current Alcohol intake frequency: holidays/special occasions only Patient Tobacco Use Status: Former Tobacco user Tobacco use type: Cigarette e-Cigarette/Vaping Use: Never Used Second Hand Smoke Exposure: No service: No Current occupational status: employed Sexual orientation: Straight/Heterosexual Gender identity: Female Cognitive needs: No Hearing needs: No Vision needs: Yes (Glasses) Female Reproductive History Menstrual Age of Menarche: 10 Review of Systems Const All systems reviewed & are unremarkable except as noted in HPI and below Reports as per HPI and Reports no additional complaints GI Reports no additional complaints Reports no additional complaints Physical Exam Vital Signs: BMI result Body Mass Index 29.2 General: Yes no CVA tenderness External Female Exam: normal external appearance and normal appearance of the urethra Speculum Exam - Vagina: normal appearance of the vagina, normal palpation, no lesions and no masses Speculum Exam - Cervix: normal appearance of the cervix, normal palpation, no lesions, no masses, nontender and Other cervical findings present (IUD string seen) Bimanual exam- vagina & uterus: normal bimanual exam, normal palpation, uterine size normal, normal palpation, uterine shape normal, No Cervical tenderness present and non-tender Bimanual Exam- Adnexa, other: normal adnexae Back/Spine/Pelvis Back: no CVA tenderness Office Procedures IUD Insert/Removal Details Details: Counseling/Consent: After discussing with the patient the risks of the procedure including bleeding, infection, scar tissue formation, , possible injury to blood vessels or nerves, chronic arm pain, blood transfusion, and irregular unpredictable bleeding Alternative options were discussed with the patient including but not limited: Do nothing. The patient signed the consent and agreed with the plan; all questions answered. Preop dx: Requesting ParaGard IUD removal Op: ParaGard IUD removal Post op dx: same EBL= 10 cc Procedure: The patient was put in the dorsal lithotomy position a speculum was inserted in the vagina the IUD thread identified. Using a Adeline clamp the thread was grasped and the IUD pulled out with no complications. The patient tolerated the procedure well and was advised to use a different method for contraception. Discharge instructions: Instructions were given to the pt to call if temp>100.4, abdominal pain heavy vaginal bleeding, n/v occur. The patient verbalized understanding and all questions answered. This note was generated with a voice recognition program. Some errors may have been overlooked during the review of this note. Sometimes these errors may affect the content or meaning of a given sentence. [id number] Removal Procedure code (CPT) selection complete Assessment & Plan Assessment & Plan (1) Menopausal state: Code(s): N95.1 - Menopausal and female climacteric states Category: Medical Plan: Discussed with the patient the results of her workup including elevated FSH/LH, inactive endometrium by EMB, normal pelvic ultrasound, in addition discussed with the patient the diagnosis of menopause. Instructions given the patient to call in case recurrence of her vaginal bleeding. Will proceed with further endometrial sampling to rule out endometrial pathology In addition discussed with the level of hCG at 10, recommended repeat hCG quantitative to confirm that is this mild elevations is related to elevated LH Discussed with the patient the indication for IUD removal since the patient has elevated FSH/LH levels , the patient agreed, see procedure note (2) Encounter for IUD removal: Code(s): Z30.432 - Encounter for removal of intrauterine contraceptive device Category: Medical Plan: IUD removed, see procedure Orders: Orders HCG Quantitative Today N93.9 - Abnormal uterine and vaginal bleeding, unspecified Coding Level of Care Code Est Pt Level 3 (95338) Procedure Only Diagnoses Menopausal state N95.1 Encounter for IUD removal Z30.432 CPT Codes Details - CPT: 83020-JMJ Removal ([id number])
[2025-02-03 08:35] VITALS: BMI 29.2
--- OUTSIDE RECORDS SUMMARY | 2025-02-03 09:42 | XMS_ITS | Clinical Summary ---
Author Organization [facility] it Address [address] [place] [address] Care Team Providers Care Stenciling Machine Tender Name Role Phone Unavailable Primary Care [...] Cervical Cancer Screening: P ap Smear 1999 Depression Screening 05/27/2024 COVID-19 Vaccine ( - 2023-2 5 season) 2025 Influenza Vaccine (#1) 2025 HIB Vaccines Aged [...]
--- OUTSIDE RECORDS SUMMARY | 2025-02-03 09:42 | XMS_ITS | Encounter Summary ---
Author Organization [facility] Address [address] [place] [address] Phone Care Team Providers Care School Custodian Name Role Phone Nathen Kinsey MD Primary Care Provider Reason for Referral * Consultation (Elective) - Closed Specialty Diagnoses / Procedures Referred By Samantha morales Referred To Contact Neurology Diagnoses Encounter for consultation System, Provider Not In, PhD [address] [address] Referral ID Status Reason Start Date Expiration Date Visits Re quested Visits Authorized [id number] Closed 03/08/2016 03/08/2017 1 1 Encounter Details Date Type Department Care Team (Latest Contact Info) Description 03/08/2016 Transcribe Orders [facility] Department of Neurology [address], [address] [place] [address] Jacob Carroll MD [address] [place] [phone] Encounter for consultation (Primary Dx) Social [...] Diagnoses Orde r Schedule Ambulatory referral to [facility] Neurology Outpatient Referral Routine Encounter for consultation Ordered: 03/08/2016 documented as of this encounter Visit Diagnoses Diagnosis Encounter for consultation- Primary documented in this encounter Care Teams School Custodian Relationship Specialty Start Date End Date Nathen Kinsey MD [address] [place] [address] PCP - General Internal Medicine 01/26/16 documented as of this encounter Additional Source Comments The information contained in this document represents components of the legal health record. It is not the complete legal health record.[facility]
--- OUTSIDE RECORDS SUMMARY | 2025-02-03 09:42 | XMS_ITS | Clinical Summary ---
Author Organization [facility] Address [address] [place] [phone] Phone Care Team Providers Care Aircraft Sales Representative Name Role Phone Tio Nathen Tanner MD Primary Care Provider Allergies No known active allergies Medications calcium citrate-vitamin D (CITRACAL+D) 315-200 mg-unit per tablet Take 2 tablets by mouth 3 (three) times a day. CITRACAL W/D (CALCIUM CITRATE+VIT D(1 YWO=950 MG CA++ & 200U VIT D)) 315 MG-200 TABLET; Dose: 2 TAB; Form: Not available; Route: PO; Frequency: TID; Directions: Not available; Details: Dispense: 90 Tablet(s); Taking; Status: Active; Source: ABHIJIT GELLER RN; Date: 05/28/2013 4 Active COPPER (PARAGARD T 380A UTRN) PARAGARD INTRAUTERINE COPPER CONTRACEPTIVE; Dose: 1 EA; Form: Not available; Route: PV; Frequency: X1; Directions: Not available; Details: Taking; Status: Active; Source: ABHJIIT GELLER RN; Date: 04/02/2013 3 Active MULTIVITAMIN ORAL THERAPEUTIC MULTIVITAMIN WITH MINERALS TABLET; Dose: Not available; Form: Take 1 TABLET; Route: PO; Frequency: QD; Directions: adult chewable centrum 1 tablet daily; Details: Dispense: Tablet(s); Taking; Status: Active; Source: ABHIJIT GELLER RN; Date: 05/06/2013 3 Active cyanocobalamin 500 MCG tablet 500 mcg daily. VITAMIN B12 (CYANOCOBALAMIN) 500MCG TABLET; Dose: Not available; Form: Not available; Route: PO; Frequency: QD; Directions: Not available; Details: Dispense: Tablet(s); Taking; Status: Active; Source: ABHIJIT GELLER RN; Date: 05/28/2013 4 Active IRON,CARBONYL/A SCORBIC ACID (VITRON-C ORAL) VITRON-C; Dose: 1 TAB; Form: Not available; Route: PO; Frequency: QD; Directions: Not available; Details: Taking; Status: Active; Source: ABHIJIT GELLER RN; Date: 05/28/2013 4 Active Active Problems Problem Noted Date Diagnosed Date Morbid obesity 01/28/2014 Overview (07/17/2014): Morbid obesity - resolved Hypercholesterolemia 02/26/2013 Overview (07/17/2014): Hypercholesterolemia - resolved Vitamin D deficiency 09/09/2012 Overview (07/17/2014): Vitamin D deficiency; advised to start otc vitamin d Rosacea 09/01/2012 Overview (07/17/2014): Rosacea Depressive disorder 07/11/2012 Overview (07/17/2014): Depressive disorder Anxiety 07/11/2012 Overview (07/17/2014): Anxiety Acne 07/11/2012 Overview (07/17/2014): Acne Bipolar disorder 07/11/2012 Overview (07/17/2014): Bipolar disorder Allergic rhinitis 07/11/2012 Overview (07/17/2014): Allergic rhinitis Obesity 07/11/2012 Overview (07/17/2014): Obesity Immunizations Immunization Administration Dates Next Due INFLUENZA, SPLIT VIRUS, TRIVALENT PF 04/30/2013 INFLUENZA, SPLIT VIRUS, TRIV ALENT W/ PRESERVATIVE IM 04/27/2014 Influenza, Unspecified Formulation 07/11(Deferred: Patient Decision - , Ordered By: [id number]) Tdap 07/11/2012 Family History Medical History Relation Comments Type 2 Diabetes Maternal Grandfather Diabetes Me llitus Type 2 Obesity Maternal Grandmother Obesity Obesity Mother Obesity Breast cancer Paternal Aunt Breast Cancer Coronary artery disease Paternal Grandmother Cor onary Artery Disease; CHF Relation Status Comments Maternal Grandfather Maternal Grandmother Mother Paternal Aunt Paternal Grandmother Social History Tobacco Use Types Packs/Day Years Used Date Smoking Tobacco: Former Education Answer Date Recorded Are you interested in more education? Not on vee e 09/20/2022 Are you concerned about learning? Not on file 09/20/2022 No 09/20/2022 No 09/20/2022 Digital Access Answer Date Recorded No 10/22/2022 No 10/22/2022 No 10/22/2022 Reliable internet access at home? Not on file 10/22/2022 Device with a working camera? Not on file Comments Unknown Sex and Gender Information Value Date Recorded Sex Assigned at Not on file Legal Sex Female 7:33 PM EST Gender Identity Not on file Sexual Orientation Not on file Last Filed Vital Signs Vital Sign Reading Time Taken Comments Blood Pressure 110/67 06/01/2016 10:15 AM EST Pulse 85 06/01/2016 10:15 AM EST Temperature 36.7 C (98.1 F) 04/27/2014 1:06 PM EST Respiratory Rate 18 10/05/2012 12:48 PM EDT Oxygen Saturation - - Inhaled Oxygen Concentration - - Weight 59.9 kg (132 lb 1.6 oz) 06/01/2016 10:15 AM EST Height 160 cm (5' 3 ) 06/01/2016 10:15 AM EST Body Mass Index 23.4 06/01/2016 10:15 AM EST Plan of Treatment Health Maintenance Due Date Last Done Comments DEPRESSION SCREENING 1990 SMOKING Hx and SMOKELESS TOBACCO SCREENING 1991 HEPATITIS C SCREENING 1996 HIV ONE-TIME SCREENING (18-65 YEARS) 1996 PAP SMEAR 01/03/2018 01/03/2015, 08/25, 09/01/2012 MAMMOGRAM 2018 12/20/2014 LIPID PANEL 06/02/2020 06/02/2015, 11/2015, 06/07/2014, Additional history exists COLOGUARD 2023 COLONOSCOPY 2023 COLORECTAL CANCER SCREENING 2023 FIT TEST 2023 FOBT 2023 SIGMOIDOSCOPY 2023 VIRTUAL COLONOSCOPY 2023 COVID-19 VACCINE ( season) 2024 10/13/2020, 09/22/2020 INFLUENZA VACCINE (#1) 2024 , 04/08/2019, 04/27/2014, Additional history exists Adult Td,Tdap Booster 10/30/2027 10/29/2017, 013 HEPATITIS A VACCINES Aged Out No long er eligible based on patient's age to complete this topic HIB VACCINES Aged Out No longer eligi ble based on patient's age to complete this topic MENINGOCOCCAL VACCINES (ACWY) Aged Out No longer eligible based on patient's age to complete this topic MENINGOCOCCAL VACCINES (B) Aged Out N o longer eligible based on patient's age to complete this topic PNEUMOCOCCAL VACCINES (0-49 years) Aged Out No longer eligible based on patient's age to complete this topic Medical Devices Not on file Procedures Procedure Name Priority Date/Time Associated Diagnosis Comments LIPID PANEL Routine 06/02/2015 11:45 AM EST PAP TEST Routine 01/03/2015 1:12 PM EDT BI MAMMOGRAM SCREENING (BILATERAL) 12/20/2014 12:00 AM EDT from Last 3 Months or Most Recently Relevant to Health Maintenance Results * (ABNORMAL) Lipid panel (06/02/2015 11:45 AM EST) FASTING (LIPIP) NONFASTIN G(A) [facility] CHOLESTEROL 175 140 - 200 mg/dL [facility] Comment: Total cholesterol, mg/dL (mmol/L): <200 Desirable 200-239 Borderline high >=240 High TRIGLYCERIDE 55 <150 mg/dL [facility] Comment: Normal <150 mg/dL Border-high 150-199 mg/dL High triglycerides 200-499 mg/dL Very high triglycerides >=500 mg/dL HDL CHOLESTEROL 72 >40 mg/dL [facility] Comment: HDL cholesterol, mg/dL (mmol/L): <40 Low >=60 High LDL CHOLESTEROL (CALC) 92 <130 mg/dL [facility] Comment: LDL cholesterol, mg/dL (mmol/L): <100 Optimal 100-129 Near or above optimal 130-159 Borderline high 160-189 High >=190 Very high CHOL/HDL RATIO 2.4 <4.5 [facility] 06/02/2015 11:4 5 AM EST 06/02/2015 12:12 PM EST Rick Peters MD LAB BLOOD ORDERABLES Edite d Result - Final Performing Organization Address City/State/[facility] Co de Phone Number [facility] [address] [place] [address] * Pap Smear (01/03/2015 1:12 PM EDT) 01/03/2015 1:12 PM EDT Narrative [facility] - 01/03/2015 11:02 PM EDT Accession Number: [id number] Report Status: Final Type: Cytology Date: 01/03/2015 Ordering Provider: BRITTANY TERRY Comment: FASTING: NO DATA PROVIDED COLLECTION DATE: RECEIVED DATE: SPECIMEN REPORTED DATE: Unless otherwise noted,Test Performed At: [facility] [address] [place] [address], [address], KERWIN GALICIA M.D. THINPREP TIS PAP REFLEX HPV mRNA E6/E7 THINPREP TIS PAP REFLEX HPV mRNA E6/E7 THINPREP TIS PAP REFLEX HPV mRNA E6/E7 THINPREP TIS PAP REFLEX HPV mRNA E6/E7 Lab: NL2 CLINICAL INFORMATION: none given LMP: 12/27/14 prev. Pap: NONE GIVEN prev. Bx: NONE GIVEN SOURCE: Cervix STATEMENT OF ADEQUACY: Satisfactory for evaluation. Endocervical/transformation zone component present. INTERPRETATION/RESULT: Negative for intraepithelial lesion or malignancy. COMMENT: This Pap test has been evaluated with computer assisted technology. FIRE ALARM INSPECTOR: ROBERT ESCOBAR([facility]) For questions contact Anatomic Pathology Client Services at [phone] PERFORMING SITE: NL2 [facility] [address] [address] Technical Agronomist: KERWIN GALICIA MD, CLIA: [id number] us Brittany Terry MD CYTOLOGY ORDERABLES Final Resu lt [facility] [address] [place] [address], [facility] * Mammogram Screening (Bilateral) (12/20/2014 12:00 AM EDT) Anatomical Region Laterality Modality Breast Left, Breast Right, Breast Bilateral Bila teral Mammography 12/20/2014 6:48 PM EDT Narrative 12/20/2014 6:48 PM EDT Exam Number: [id number] Report Status: Signed Type: DIG SCREENING MAMM THALIA W/CAD Date/Time: 12/20/2014 18:48 Ordering Provider: Jose Del Rosario Dr. EXAMS: [id number] MAMM/DIG SCREENING MAMM THALIA W/C BI-RAD 1 Neg REASON FOR TEST: SCREENING TEST DETAIL: 6:40PM - PCPT: [id number] BILATERAL DIGITAL MAMMOGRAM: The patient presents for annual mammography. Examination is performed with digital mammography and computer aided detection as well as tomosynthesis. There are no prior mammograms available for comparison . The breast tissue is heterogeneously dense, an appearance which lowers the sensitivity of mammography. There are no suspicious masses, suspicious calcifications, areas of distortion or other signs of malignancy. IMPRESSION: No evidence of malignancy. Result Code: S1 BI-RADS 1 Negative. Follow Up: 12 Months Reported By: DIONY MINA M.D. S1 CC: JOSE DEL ROSARIO M.D. Technologist: CATIE MCDANIEL Transcribed Date/Time: 12/23/2014 (07) [employer] Specialist: HENRRY Dictated Date/Time: 12/23/2014 (0708) Procedure Note System, Provider Not In, PhD - 12/23/2014 Exam Number: [id number] Report Status: Signed Type: DIG SCREENING MAMM THALIA W/CAD Date/Time: 12/20/2014 18:48 Ordering Provider: Jose Del Rosario Dr. EXAMS: [id number] MAMM/DIG SCREENING MAMM THALIA W/C BI-RAD 1 Neg REASON FOR TEST: SCREENING TEST DETAIL: 6:40PM - PCPT: [id number] BILATERAL DIGITAL MAMMOGRAM: The patient presents for annual mammography. Examination is performed with digital mammography and computer aided detection as well as tomosynthesis. There are no prior mammograms available for comparison . The breast tissue is heterogeneously dense, an appearance which lowers the sensitivity of mammography. There are no suspicious masses, suspicious calcifications, areas of distortion or other signs of malignancy. IMPRESSION: No evidence of malignancy. Result Code: S1 BI-RADS 1 Negative. Follow Up: 12 Months Reported By: DIONY MINA M.D. S1 CC: JOSE DEL ROSARIO M.D. Technologist: CATIE MCDANIEL Transcribed Date/Time: 12/23/2014 (07) [employer] Specialist: HENRRY Dictated Date/Time: 12/23/2014 (0789) Jose Del Rosario MD IMG MG EXAMS Final R esult from Last 3 Months or Most Recently Relevant to Health Maintenance Care Teams Aircraft Sales Representative Relationship Specialty Start Date End Date Nathen Kinsey MD [address] [place] [phone] PCP - General Internal Medicine 01/26/16 Additional Source Comments The information contained in this document represents components of the legal health record. It is not the complete legal health record.[facility]
== END 2025-02-03 09:05 | disposition home or self-care (01) ==
LOC: HO.HWS 08:26
PROVIDERS: Visit Provider Obstetrics & Gynecology
DX: N95.1 Menopausal and female climacteric states (principal); Z30.432 Encounter for removal of intrauterine contraceptive device
CPT/HCPCS: 58301; 99213

== ENCOUNTER → 2025-02-03 08:25 | Outpatient (BNVA) | payer OTHER, SELFPAY | PROVIDERS: Visit Provider Obstetrics & Gynecology | DX: Z30.432 Encounter for removal of intrauterine contraceptive device (principal); N95.1 Menopausal and female climacteric states | CPT/HCPCS: 58301 ==

== ENCOUNTER 2025-03-25 14:35 | Outpatient (AMB) | payer OTHER, SELFPAY ==
[2025-03-25 14:40] VITALS: BP 100/68; PULSE 67; TEMP 36.2; O2SAT 99; BMI 30.5
--- NOTE | 2025-03-25 14:40 | A.OFFPC_ITS ---
Vital Signs 03/25/25 14:40 Height 5 ft 3 in Weight 172 lb 6 oz BMI 30.5 BP 100/68 Blood Pressure Location Rt brachial Position Sitting Pulse 67 Pulse Source Pulse Oximeter Temp 97.1 F Temp Source Temporal Artery Scan Pulse Oximetry (%) 99 Oxygen Delivery Method Room Air Intake Visit Reasons: Neck injury Intake Note: Patient is here today for a physical. Break Up Worker Required: No Blemish Remover: Not Required per policy Accompanied by: Self / Same As Patient Allergies No Known Allergies Allergy (Verified 03/25/25 14:47) Medication List - Last Reconciled 03/25/25 by Courtney Meek PA-C fluticasone propionate 50 mcg/actuation (Flonase Allergy Relief) 1 spray intranasal DAILY loratadine 10 mg PO DAILY PRN omeprazole 40 mg PO BID Tobacco use date assessed: 03/25/25 Dental Screening Dental Screen Date: 03/25/25 Did you have a dental visit in the last 12 months?: Yes Did you have a dental problem in the last 6 months where you did not have access to dental care?: No Was dental information given to patient?: Patient has dentist HPI Neck injury HPI Details 44-year-old female with past medical his tory of GERD, depression, abnormal uterine bleeding last seen 05/[address] Abebe coming in for acute problem. The patient reports she woke up with excruciating pain after sleeping at her aunt's house in [place], with no specific inciting trauma. No recent injuries or inciting event. The pain is worst when tilting her head to the right and lifting her chin, and she describes it as being located where her neck meets her shoulder. Her sleep is affected, as she is a side sleeper and experiences excruciating pain if she wakes up on her back with her head tilted, requiring her to use her hands to lift her head. She states that while she has had minor neck twinges before, she has never experienced pain this severe or long-lasting. She has been using heating pads for pain at this time. 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 Mother Hypothyroidism Maternal Grandmother No problems noted. Maternal Grandfather Prostate cancer Diabetes Paternal Grandmother Colon cancer CHF (congestive heart failure) CVD (cardiovascular disease) Paternal Grandfather Parkinsons disease Mental health disorder Paternal Aunt Breast cancer Social History Household Members: Children Housing: House Are you a primary home health aide caregiver to a significant other at home: Yes Do you presently have visiting nurse or other home services: No Alcohol intake: current Alcohol intake frequency: holidays/special occasions only Patient Tobacco Use Status: Never used Tobacco Tobacco use type: Cigarette e-Cigarette/Vaping Use: Never Used Second Hand Smoke Exposure: No service: No Current occupational status: employed Sexual orientation: Straight/Heterosexual Gender identity: Female Cognitive needs: No Hearing needs: No Vision needs: Yes (Glasses) Female Reproductive History Menstrual Age of Menarche: 10 Questionnaire PHQ-9 Over the last 2 weeks, how often have you been bothered by any of the following problems? 1. Little interest or pleasure in doing things: several days 2. Feeling down, depressed, or hopeless: not at all 3. Trouble falling or staying asleep, or sleeping too much: several days 4. Feeling tired or having little energy: not at all 5. Poor appetite or overeating: not at all 6. Feeling bad about yourself - or that you are a failure or have let yourself or your family down: not at all 7. Trouble concentrating on things, such as reading the newspaper or watching television: not at all 8. Moving or speaking so slowly that other people could have noticed. Or the opposite - being so fidgety or restless that you have been moving around a lot more than usual: not at all 9. Thoughts that you would be better off or of hurting yourself in some way: not at all Total score: 2 Depression Screening Interpretation: Positive Depression Screening Done: Yes Source: Developed by Drs. Toy Nance, Christy Wiley, Fabrice Roberson and colleagues, with an educational swati from [employer]. Thrive Questionnaire Date Thrive assessed: 06/26/24 I am a: Patient What is your living situation today?: I have a steady place to live Within the past 12 months, did the food you bought not last and you didn't have the money to get more?: Never true Within the past 12 months, did you worry whether your food would run out before you got money to buy more?: Never true Do you have trouble paying for medicines?: No Do you have trouble getting transportation to medical appointments?: No Do you have trouble paying your heating and electricity bill?: No Do you have trouble taking care of your child, family member or friend?: No Do you have trouble with day-to-day activities such as bathing, preparing meals, shopping, managing finances, etc.?: No Are you currently unemployed and looking for a job?: No Are you interested in more education?: No Please select the resources that you would like help with: None Currently or been in a relationship where the following occur: I choose not to answer THRIVE Score: 0 AUDIT C Alcohol Use Questionnaire (AUDIT-C) 1. How often do you have a drink containing alcohol?: Monthly or less 2. How many drinks containing alcohol do you have on a typical day when you are drinking?: 1 or 2 3. How often do you have six or more drinks on one occasion?: Never Total Score: 1 AGATHA-7 AMB Questionnaire AGATHA-7 Date AGATHA - 7 assessed: 03/25/25 Feeling nervous, anxious, or on edge: 1 = Several days Not being able to stop or control worryin = Several days Worrying too much about different things: 0 = Not at all Trouble relaxin = Not at all Being so restless that it is hard to sit still: 0 = Not at all Becoming easily annoyed or irritable: 1 = Several days Feeling afraid as if something awful might happen: 0 = Not at all Total AGATHA-7 score (0-4 normal; 5-9 mild; 10-14 moderate; 15-21 severe): 3 Source: Developed by Drs. Toy Nance, Christy Wiley, Fabrice Roberson and colleagues, with an educational swati from [employer]. Review of Systems Const Denies body aches, Denies chills, Denies fever(s) and Denies poor appetite Eyes Reports no additional complaints ENT Denies odynophagia Card Reports no additional complaints Resp Reports no additional complaints GI Denies odynophagia Reports no additional complaints Musc Reports as per HPI and Denies abnormal gait Skin/Breast Reports system reviewed and no additional complaints, except as documented Neuro Denies abnormal gait Psych Reports no additional complaints Physical exam (Primary Care) Vital Signs: Last Vital Signs Temp 97.1 F 03/25/25 14:40 Oxygen Delivery Method Room Air 03/25/25 14:40 BMI result Body Mass Index 30.5 Tobacco/Smoking Status: Tobacco use Status Tobacco use date assessed 03/25/25 03/25/25 14:42 Patient Tobacco Use Status Former Tobacco user 03/25/25 14:42 Tobacco use type Cigarette 03/25/25 14:42 e-Cigarette/Vaping Use Never Used 03/25/25 14:42 PHQ-9: PHQ-9 Score PHQ-9: Total score 2 03/25/25 14:42 Depression Screening Interpretation: Positive Thrive Assessment: Date of Thrive Assessment Date Thrive assessed 06/26/24 03/25/25 14:42 Currently or been in a relationship where the following occur: I choose not to answer Const General: cooperative, healthy appearing, comfortable and no acute distress Orientation/consciousness: patient oriented x3 HENMT Head: Yes normocephalic Ears: hearing grossly normal bilaterally General nose exam: Normal external nose present Neck Other: pain elicited with right rotation and right lateral bend of the neck. No TTP of cervical spine. TTP of SCM muscle distribution Neck: Yes no lymphadenopathy Resp Effort & Inspection: normal respiratory effort Cardio Rate: regular rate Skin General skin exam: no rashes or lesions noted Neuro General: patient oriented x3 Gait exam (Neuro): Normal gait present Psych Affect: normal affect Attitude: cooperative Insight: Good insight present (Psych) Judgement: Good judgement present (Psych) Coding Level of Care Code Est Pt Level 3 (59604) Diagnoses Neck strain S16.1XXA Assessment & Plan Assessment & Plan (1) Neck strain: Code(s): S16.1XXA - Strain of muscle, fascia and tendon at neck level, initial encounter Category: Medical Plan: The patient's presentation with acute right-sided neck pain is consistent with a neck strain. This is likely multifactorial, secondary to a long car drive and a change in sleeping posture. The condition is expected to resolve in approximately 2-3 weeks with conservative management. The plan includes a prescription for a muscle relaxer with low drowsiness potential, to be taken at night to aid sleep and reduce muscle tension; the patient was advised not to drive while on this medication. Moist heat application using a heating pad is recommended before performing prescribed neck stretches. A handout detailing neck exercises was provided. A lidocaine patch was applied in the office for immediate relief, and an extra patch was provided for home use. Consider PT if symptoms do not improve. Plan This note was constructed using voice recognition software. While every effort has been made to ensure accuracy and trap operator, still areas may have been included sometimes these areas may affect the content or meeting of the given symptoms. Total time spent caring for the patient today was 20 minutes. This includes time spent before the visit reviewing the chart, time spent during the visit, and time spent after the visit and documentation. Patient was informed and verbally consented to the use of an ambient scribe for clinic note documentation during this visit. Medications: New methocarbamol 500 mg PO TID 30 tabs 0RF
--- OUTSIDE RECORDS SUMMARY | 2025-03-25 17:39 | XMS_ITS | Clinical Summary ---
Author Organization [facility] Address [address] [place] [id number] Phone Care Team Providers Care General Road Foreman Name Role Phone Tio Nathen Tanner MD Primary Care Provider Allergies No known active allergies Medications calcium citrate-vitamin D (CITRACAL+D) 315-200 mg-unit per tablet Take 2 tablets by mouth 3 (three) times a day. CITRACAL W/D (CALCIUM CITRATE+VIT D(1 HOJ=841 MG CA++ & 200U VIT D)) 315 [...] Status: Active; Source: ABHIJIT GELLER RN; Date: 04/02/2013 3 Active MULTIVITAMIN [...] FOBT 2023 SIGMOIDOSCOPY 2023 VIRTUAL COLONOSCOPY 2023 INFLUENZA VACCINE (#1) 2024 , 04/08/2019, 04/27/2014, Additional history exists COVID-19 VACCINE ( season) 2025 10/13/2020, 09/22/2020 Adult Td,Tdap Booster 10/30/2027 10/29/2017, 013 HEPATITIS [...] 11:45 AM EST) FASTING (LIPIP) NONFASTIN G(A) [facility] CHOLESTEROL 175 140 - 200 mg/dL [facility] Comment: Total cholesterol, mg/dL (mmol/L): <200 Desirable 200-239 Borderline high >=240 High TRIGLYCERIDE 55 <150 mg/dL [facility] Comment: Normal <150 mg/dL Border-high 150-199 mg/dL High triglycerides 200-499 mg/dL Very high triglycerides >=500 mg/dL HDL CHOLESTEROL 72 >40 mg/dL [facility] Comment: HDL cholesterol, mg/dL (mmol/L): <40 Low >=60 High LDL CHOLESTEROL (CALC) 92 <130 mg/dL [facility] Comment: LDL cholesterol, mg/dL (mmol/L): <100 Optimal 100-129 Near or above optimal 130-159 Borderline high 160-189 High >=190 Very high CHOL/HDL RATIO 2.4 <4.5 [facility] 06/02/2015 11:4 5 AM EST 06/02/2015 12:12 PM EST Rick Peters MD LAB BLOOD ORDERABLES Edite d Result - Final Performing Organization Address City/State/[facility] Co de Phone Number [facility] [address] [place] [address] * Pap Smear (01/03/2015 1:12 PM EDT) 01/03/2015 1:12 PM EDT Narrative [facility] DIAGNOSTICS - 01/03/2015 11:02 PM EDT Accession Number: [id number] Report Status: Final Type: Cytology Date: 01/03/2015 Ordering Provider: BRITTANY TERRY Comment: FASTING: NO DATA PROVIDED COLLECTION DATE: RECEIVED DATE: SPECIMEN REPORTED DATE: Unless otherwise noted,Test Performed At: [facility] [address] [place] [address], [id number], KERWIN GALICIA M.D. THINPREP TIS PAP REFLEX [...] has been evaluated with computer assisted technology. SENIOR INFRASTRUCTURE ARCHITECT: ROBERT ESCOBAR([facility]) For questions contact Anatomic Pathology Client Services at [phone] PERFORMING SITE: [facility] [facility] [address] [address] [place] Worker: KERWIN GALICIA MD, CLIA: [id number] us Brittany Terry MD CYTOLOGY ORDERABLES Final Resu lt [facility] [address] [place] [address], [facility] * Mammogram Screening (Bilateral) (12/20/2014 12:00 AM EDT) Anatomical Region Laterality Modality Breast Left, Breast Right, Breast Bilateral Bila teral Mammography 12/20/2014 6:48 PM EDT Narrative 12/20/2014 6:48 PM EDT Exam Number: [id number] Report Status: Signed Type: DIG SCREENING MAMM THALIA W/CAD Date/Time: 12/20/2014 18:48 Ordering Provider: Jose Del Rosario Dr. EXAMS: [id number] MAMM/DIG SCREENING MAMM THALIA W/C BI-RAD 1 Neg REASON FOR TEST: SCREENING TEST DETAIL: 6:40PM - PCPT: [id number] BILATERAL DIGITAL MAMMOGRAM: The patient presents for [...] Technologist: CATIE MCDANIEL Transcribed Date/Time: 12/23/2014 (07) Boxing Inspector: HENRRY Dictated Date/Time: 12/23/2014 (0792) Procedure Note System, Provider Not In, PhD - 12/23/2014 Exam Number: [id number] Report Status: Signed Type: DIG SCREENING MAMM THALIA W/CAD Date/Time: 12/20/2014 18:48 Ordering Provider: Jose Del Rosario Dr. EXAMS: [id number] MAMM/DIG SCREENING MAMM THALIA W/C BI-RAD 1 Neg REASON FOR TEST: SCREENING TEST DETAIL: 6:40PM - PCPT: [id number] BILATERAL DIGITAL MAMMOGRAM: The patient presents for [...] Technologist: CATIE MCDANIEL Transcribed Date/Time: 12/23/2014 (07) Boxing Inspector: HENRRY Dictated Date/Time: 12/23/2014 (0781) Jose Del Rosario MD IMG MG EXAMS Final R esult from Last 3 Months or Most Recently Relevant to Health Maintenance Care Teams General Road Foreman Relationship Specialty Start Date End Date Nathen Kinsey MD [address] [place] [id number] PCP - General Internal Medicine 01/26/16 Additional Source Comments The information contained in this document represents components of the legal health record. It is not the complete legal health record.[facility]
--- OUTSIDE RECORDS SUMMARY | 2025-03-25 17:39 | XMS_ITS | Clinical Summary ---
Author Organization [facility] [place] [place] [address] Care Team Providers Care Digital Media Analyst Name Role Phone Unavailable Primary Care Provider [...] 5 season) 2025 Influenza Vaccine (#1) 2025 RSV Immunization Adult Patie nts (1 - 1-dose 75+ series) 2053 HIB Vaccines Aged Out No longer eligi [...]
--- OUTSIDE RECORDS SUMMARY | 2025-03-25 17:39 | XMS_ITS | Encounter Summary ---
Author Organization [facility] Address [address] [place] [address] Phone Care Team Providers Care Plywood Scarfer Tender Name Role Phone Nathen Kinsey MD Primary Care Provider [phone] Reason for Referral * Consultation (Elective) - Closed Specialty Diagnoses / Procedures Referred By Samantha morales Referred To Contact Neurology Diagnoses Encounter for consultation System, Provider Not In, PhD [address] [address] Referral ID Status Reason Start Date Expiration Date Visits Re quested Visits Authorized [id number] Closed 03/08/2016 03/08/2017 1 1 Encounter Details Date Type Department Care Team (Latest Contact Info) Description 03/08/2016 Transcribe Orders [facility] Department of Neurology [address]th [address], [address] [place] [address] Jacob Carroll MD [address] [place] [phone] Encounter for consultation (Primary Dx) Social [...] Diagnoses Orde r Schedule Ambulatory referral to [facility] Outpatient Referral Routine Encounter for consultation Ordered: 03/08/2016 documented as of this encounter Visit Diagnoses Diagnosis Encounter for consultation- Primary documented in this encounter Care Teams Plywood Scarfer Tender Relationship Specialty Start Date End Date Nathen Kinsey MD [address] [place] [phone] PCP - General Internal Medicine 01/26/16 documented as of this encounter Additional Source Comments The information contained in this document represents components of the legal health record. It is not the complete legal health record.[facility]
== END 2025-03-25 15:09 | disposition home or self-care (01) ==
LOC: HO.HMCH 14:36
DX: S16.1XXA Strain of muscle, fascia and tendon at neck level, initial encounter (principal)